=== PATIENT | male | born 1945 | race Caucasian/White ===

== ENCOUNTER → 2020-02-29 17:00 | Outpatient (BNVA) | payer OTHER, MEDICAID, SELFPAY | PROVIDERS: Family Provider Family Medicine; Visit Provider Nurse Practitioner Family | DX: M17.11 Unilateral primary osteoarthritis, right knee (principal); M25.561 Pain in right knee | CPT/HCPCS: 73562 ==

== ENCOUNTER → 2022-03-29 14:35 | Outpatient (BNVA) | payer OTHER, MEDICAID, SELFPAY | PROVIDERS: Family Provider Family Medicine; Visit Provider Family Medicine | DX: E03.9 Hypothyroidism, unspecified (principal); E53.8 Deficiency of other specified B group vitamins | CPT/HCPCS: 82607; 84443 ==

== ENCOUNTER 2023-05-16 10:45 | Oncology outpatient (recurring) (ONCR) | payer MEDICARE, MEDICAID, SELFPAY ==
[2023-04-26 10:27] LABS: Hematocrit 26.9 % (37-53); Mean Corpuscular HGB Conc 31.2 g/dL (30-55); Mean Corpuscular Hemoglobin 30.2 pg (27-33); Mean Corpuscular Volume 96.8 fl (82-101); Mean Platelet Volume 9.5 fL (7.4-10.4); Platelet Count 323 10^3/cmm (157-399); Red Blood Count 2.78 10^6/uL (3.85-5.65); Red Cell Distribution Width 17.2 % (12.1-15.1); White Blood Count 9.55 10^3/uL (3.29-11.43)
[2023-04-26 11:12] LABS: Alanine Aminotransferase 6 U/L (0-41); Albumin Level 3.9 g/dL (3.5-5.2); Alkaline Phosphatase 197 U/L (40-130); Anion Gap 17.5 (5-19); Aspartate Amino Transferase 19 U/L (0-40); Blood Urea Nitrogen 17 mg/dL (8-23); Calcium 9.3 mg/dL (8.5-10.5); Carbon Dioxide 24 mmol/L (22-29); Chloride 103 mmol/L (98-107); Creatinine Clr Calc Pharmacy 60.6343; Globulin 3.1 g/dL (1.3-4.6); Glucose 91 mg/dL (65-115); Osmolality Calculated 289 mOsm/kg (285-295); Potassium 5.5 mmol/L (3.5-5.1); Sodium 139 mmol/L (136-145); Total Bilirubin 0.4 mg/dL (0.15-1.2)
[2023-04-26 11:22] LABS: Slide Review Slide Review Perform
[2023-04-26 11:23] LABS: Absolute Eosinophils 0.1 10^3/cmm (0.0-0.7); Absolute Neutrophil 4.8 10^3/cmm (1.4-6.5); Absolute Segmented Neutrophil 4.3 10/cmm (1.6-7.1); Anisocytosis Trace; Band Neutrophils Absolute 0.5 10^3/cmm (0.0-1.2); Basophils Absolute 0.1 10^3/cmm (0.0-0.2); Eosinophils 1 %; Lymphocytes 37 %; Lymphocytes Absolute 3.9 10^3/cmm (1.2-3.4); Macrocytosis Trace; Monocytes Absolute 0.3 10^3/cmm (0.1-0.6); Platelet Estimate Normal (Normal); Polychromasia Trace; Segmented Neutrophils 45 %; Total Cells Counted 100 (0-100)
[2023-04-26 11:35] LABS: Prostate Specific Antigen > 5000.000 ng/mL (0-4)
[2023-05-09 09:18] LABS: Hematocrit 25.7 % (37-53); Mean Corpuscular HGB Conc 30.7 g/dL (30-55); Mean Corpuscular Hemoglobin 30.2 pg (27-33); Mean Corpuscular Volume 98.1 fl (82-101); Mean Platelet Volume 9.3 fL (7.4-10.4); Platelet Count 393 10^3/cmm (157-399); Red Blood Count 2.62 10^6/uL (3.85-5.65); Red Cell Distribution Width 16.9 % (12.1-15.1); White Blood Count 8.04 10^3/uL (3.29-11.43)
[2023-05-09 10:04] LABS: Slide Review Slide Review Perform
[2023-05-09 10:09] LABS: Absolute Eosinophils 0.2 10^3/cmm (0.0-0.7); Absolute Segmented Neutrophil 3.9 10/cmm (1.6-7.1); Band Neutrophils Absolute 0.2 10^3/cmm (0.0-1.2); Eosinophils 3 %; Lymphocytes 33 %; Lymphocytes Absolute 2.7 10^3/cmm (1.2-3.4); Monocytes Absolute 0.4 10^3/cmm (0.1-0.6); Segmented Neutrophils 48 %; Total Cells Counted 100 (0-100)
[2023-05-09 10:11] LABS: Absolute Neutrophil 4.1 10^3/cmm (1.4-6.5); Anisocytosis 1+; Giant Platelets 1+; Platelet Estimate Normal (Normal)
[2023-05-09] MEDS: zoledronic acid (Zometa) 4 MG/100 ML PIGGYBACK 400 MG IV (11:53)
[2023-05-09] MEDS: leuprolide 22.5 mg Kit IM (11:53)
[2023-05-09 12:16] VITALS: BP 122/53; PULSE 84; O2SAT 93
[2023-05-10] VITALS (10 sets, daily range): BP systolic 108–133; BP diastolic 54–64; PULSE 66–85; RESP 16; TEMP 36.4–36.9; O2SAT 95–97
[2023-05-10] MEDS: acetaminophen 325 mg Tablet 650 MG PO (09:45)
[2023-05-10] MEDS: diphenhydrAMINE 25 mg Capsule PO (09:45)
[2023-05-10] MEDS: sodium chloride 0.9% 250 mL Bag IV (09:45)
[2023-05-10] MEDS: FUROsemide 10 mg/mL SDV 2mL 20 MG IVP (12:01)
[2023-05-16 10:52] LABS: Hematocrit 33.5 % (37-53); Mean Corpuscular HGB Conc 30.4 g/dL (30-55); Mean Corpuscular Hemoglobin 30.2 pg (27-33); Mean Corpuscular Volume 99.1 fl (82-101); Mean Platelet Volume 9.5 fL (7.4-10.4); Platelet Count 353 10^3/cmm (157-399); Red Blood Count 3.38 10^6/uL (3.85-5.65); Red Cell Distribution Width 17.4 % (12.1-15.1); White Blood Count 8.52 10^3/uL (3.29-11.43)
[2023-05-16 11:30] LABS: Slide Review Slide Review Perform; Total Cells Counted 100 (0-100)
[2023-05-16 11:31] LABS: Absolute Eosinophils 0.1 10^3/cmm (0.0-0.7); Anisocytosis Trace; Band Neutrophils Absolute 0.2 10^3/cmm (0.0-1.2); Eosinophils 1 %; Lymphocytes 41 %; Monocytes Absolute 0.5 10^3/cmm (0.1-0.6); Platelet Estimate Normal (Normal)
[2023-05-16 11:34] LABS: Absolute Neutrophil 4.1 10^3/cmm (1.4-6.5); Absolute Segmented Neutrophil 3.9 10/cmm (1.6-7.1); Segmented Neutrophils 46 %
== END 2023-05-22 23:59 | disposition home or self-care (01) ==
PROVIDERS: Internal Medicine Medical Oncology; Nurse Practitioner Family; PCP Family Medicine; Visit Provider Family Medicine
DX: D64.9 Anemia, unspecified (principal)
CPT/HCPCS: 36415; 36430; 80053; 84153; 85007; 85025; 86850; 86900; 86920; 96365; 96375; 96402; 99205; 99215; J1940; J3489; J7050; J9217; P9016

== ENCOUNTER 2023-06-20 10:30 | Oncology outpatient (recurring) (ONCR) | payer MEDICARE, MEDICAID, SELFPAY ==
[2023-05-23 10:58] LABS: Basophils % 0.5 %; Eosinophils # 0.2 10^3/uL (0.0-0.8); Eosinophils % 2.6 %; Hematocrit 31.4 % (37-53); Lymphocytes # 3.2 10^3/uL (0.8-4.8); Lymphocytes % 41.1 %; Mean Corpuscular HGB Conc 31.2 g/dL (30-55); Mean Corpuscular Hemoglobin 30.6 pg (27-33); Mean Corpuscular Volume 98.1 fl (82-101); Mean Platelet Volume 10.1 fL (7.4-10.4); Monocytes # 0.5 10^3/uL (0.2-0.9); Monocytes % 6.1 %; Neutrophils # 3.54 10^3/uL (1.8-7.7); Neutrophils % 46.2 %; Nucleated Red Blood Cells % 0.3 %; Platelet Count 178 10^3/cmm (157-399); Red Cell Distribution Width 17.4 % (12.1-15.1); White Blood Count 7.67 10^3/uL (3.29-11.43)
[2023-05-30 11:01] LABS: Basophils % 0.4 %; Eosinophils # 0.2 10^3/uL (0.0-0.8); Eosinophils % 3.4 %; Hematocrit 31.7 % (37-53); Lymphocytes # 2.8 10^3/uL (0.8-4.8); Lymphocytes % 42.3 %; Mean Corpuscular HGB Conc 30.9 g/dL (30-55); Mean Corpuscular Hemoglobin 30.4 pg (27-33); Mean Corpuscular Volume 98.4 fl (82-101); Mean Platelet Volume 10.3 fL (7.4-10.4); Monocytes # 0.3 10^3/uL (0.2-0.9); Monocytes % 4.9 %; Neutrophils % 46.5 %; Nucleated Red Blood Cells % 0.3 %; Platelet Count 173 10^3/cmm (157-399); Red Blood Count 3.22 10^6/uL (3.85-5.65); Red Cell Distribution Width 17.2 % (12.1-15.1); White Blood Count 6.69 10^3/uL (3.29-11.43)
[2023-06-06 10:35] VITALS: BP 116/74; PULSE 75; RESP 16; TEMP 36.4; O2SAT 99
[2023-06-06 12:37] LABS: Basophils % 0.6 %; Eosinophils # 0.2 10^3/uL (0.0-0.8); Eosinophils % 2.7 %; Hematocrit 29.9 % (37-53); Lymphocytes # 3.2 10^3/uL (0.8-4.8); Lymphocytes % 48.6 %; Mean Corpuscular HGB Conc 31.8 g/dL (30-55); Mean Corpuscular Hemoglobin 30.9 pg (27-33); Mean Corpuscular Volume 97.4 fl (82-101); Mean Platelet Volume 10.3 fL (7.4-10.4); Monocytes # 0.4 10^3/uL (0.2-0.9); Monocytes % 5.8 %; Neutrophils # 2.63 10^3/uL (1.8-7.7); Nucleated Red Blood Cells % 0.3 %; Platelet Count 223 10^3/cmm (157-399); Red Blood Count 3.07 10^6/uL (3.85-5.65); Red Cell Distribution Width 17.2 % (12.1-15.1); White Blood Count 6.57 10^3/uL (3.29-11.43)
[2023-06-06 13:05] LABS: Alanine Aminotransferase 7 U/L (0-41); Albumin Level 4.1 g/dL (3.5-5.2); Alkaline Phosphatase 176 U/L (40-130); Anion Gap 17.3 (5-19); Aspartate Amino Transferase 16 U/L (0-40); Blood Urea Nitrogen 18 mg/dL (8-23); Calcium 8.9 mg/dL (8.5-10.5); Carbon Dioxide 21 mmol/L (22-29); Chloride 106 mmol/L (98-107); Globulin 2.8 g/dL (1.3-4.6); Glucose 104 mg/dL (65-115); Osmolality Calculated 290 mOsm/kg (285-295); Potassium 5.3 mmol/L (3.5-5.1); Sodium 139 mmol/L (136-145); Total Bilirubin 0.5 mg/dL (0.15-1.2); Total Protein 6.9 g/dL (6.6-8.7)
[2023-06-06] MEDS: zoledronic acid (Zometa) 4 MG/100 ML PIGGYBACK 400 MG IV (14:24)
[2023-06-06 14:43] VITALS: BP 123/64; PULSE 84; RESP 16; TEMP 36.7; O2SAT 97
[2023-06-13 12:24] LABS: Basophils % 0.5 %; Eosinophils # 0.2 10^3/uL (0.0-0.8); Eosinophils % 3.1 %; Hematocrit 31.8 % (37-53); Lymphocytes # 2.7 10^3/uL (0.8-4.8); Lymphocytes % 44.5 %; Mean Corpuscular HGB Conc 30.8 g/dL (30-55); Mean Corpuscular Hemoglobin 30.6 pg (27-33); Mean Corpuscular Volume 99.4 fl (82-101); Mean Platelet Volume 9.4 fL (7.4-10.4); Monocytes # 0.4 10^3/uL (0.2-0.9); Monocytes % 6.5 %; Neutrophils # 2.64 10^3/uL (1.8-7.7); Neutrophils % 43.3 %; Nucleated Red Blood Cells % 0 %; Platelet Count 204 10^3/cmm (157-399); Red Cell Distribution Width 17.4 % (12.1-15.1); White Blood Count 6.11 10^3/uL (3.29-11.43)
[2023-06-13 12:50] LABS: Alanine Aminotransferase 6 U/L (0-41); Albumin Level 4.1 g/dL (3.5-5.2); Alkaline Phosphatase 167 U/L (40-130); Anion Gap 14.4 (5-19); Aspartate Amino Transferase 19 U/L (0-40); Blood Urea Nitrogen 17 mg/dL (8-23); Calcium 8.4 mg/dL (8.5-10.5); Carbon Dioxide 24 mmol/L (22-29); Chloride 108 mmol/L (98-107); Creatinine Clr Calc Pharmacy 68.3536; Globulin 2.5 g/dL (1.3-4.6); Glucose 93 mg/dL (65-115); Osmolality Calculated 293 mOsm/kg (285-295); Potassium 5.4 mmol/L (3.5-5.1); Sodium 141 mmol/L (136-145); Total Bilirubin 0.4 mg/dL (0.15-1.2); Total Protein 6.6 g/dL (6.6-8.7)
[2023-06-20 10:44] LABS: Basophils % 0.7 %; Eosinophils # 0.2 10^3/uL (0.0-0.8); Eosinophils % 3.2 %; Hematocrit 31.9 % (37-53); Lymphocytes # 2.6 10^3/uL (0.8-4.8); Lymphocytes % 46.4 %; Mean Corpuscular HGB Conc 31.7 g/dL (30-55); Mean Corpuscular Hemoglobin 31.4 pg (27-33); Mean Corpuscular Volume 99.1 fl (82-101); Mean Platelet Volume 10.1 fL (7.4-10.4); Monocytes # 0.4 10^3/uL (0.2-0.9); Monocytes % 6.9 %; Neutrophils # 2.28 10^3/uL (1.8-7.7); Neutrophils % 41.2 %; Nucleated Red Blood Cells % 0 %; Platelet Count 182 10^3/cmm (157-399); Red Blood Count 3.22 10^6/uL (3.85-5.65); Red Cell Distribution Width 17.5 % (12.1-15.1); White Blood Count 5.54 10^3/uL (3.29-11.43)
[2023-06-20 11:17] LABS: Alanine Aminotransferase 6 U/L (0-41); Albumin Level 4.3 g/dL (3.5-5.2); Alkaline Phosphatase 149 U/L (40-130); Anion Gap 16.1 (5-19); Aspartate Amino Transferase 26 U/L (0-40); Blood Urea Nitrogen 27 mg/dL (8-23); Calcium 8.4 mg/dL (8.5-10.5); Carbon Dioxide 23 mmol/L (22-29); Chloride 107 mmol/L (98-107); Creatinine Clr Calc Pharmacy 51.2652; Globulin 2.6 g/dL (1.3-4.6); Glucose 120 mg/dL (65-115); Osmolality Calculated 296 mOsm/kg (285-295); Potassium 6.1 mmol/L (3.5-5.1); Sodium 140 mmol/L (136-145); Total Bilirubin 0.4 mg/dL (0.15-1.2); Total Protein 6.9 g/dL (6.6-8.7)
== END 2023-06-21 23:59 | disposition home or self-care (01) ==
PROVIDERS: Nurse Practitioner Family; PCP Family Medicine; Visit Provider Family Medicine
DX: C61 Malignant neoplasm of prostate (principal); Z53.9 Procedure and treatment not carried out, unspecified reason
CPT/HCPCS: 36415; 80053; 84153; 85025; 96365; 99214; J3489

== ENCOUNTER 2023-07-04 09:40 | Oncology outpatient (recurring) (ONCR) | payer MEDICARE, MEDICAID, SELFPAY ==
[2023-07-04 10:24] LABS: Basophils % 0.5 %; Eosinophils # 0.1 10^3/uL (0.0-0.8); Eosinophils % 2.5 %; Lymphocytes # 2.8 10^3/uL (0.8-4.8); Lymphocytes % 48.9 %; Mean Corpuscular HGB Conc 31.3 g/dL (30-55); Mean Corpuscular Hemoglobin 31.2 pg (27-33); Mean Corpuscular Volume 99.7 fl (82-101); Monocytes # 0.4 10^3/uL (0.2-0.9); Monocytes % 6.9 %; Neutrophils # 2.27 10^3/uL (1.8-7.7); Neutrophils % 40.5 %; Nucleated Red Blood Cells % 0 %; Platelet Count 215 10^3/cmm (157-399); Red Blood Count 3.11 10^6/uL (3.85-5.65); Red Cell Distribution Width 17.8 % (12.1-15.1); White Blood Count 5.62 10^3/uL (3.29-11.43)
[2023-07-04 10:53] LABS: Alanine Aminotransferase 6 U/L (0-41); Alkaline Phosphatase 136 U/L (40-130); Anion Gap 15.1 (5-19); Aspartate Amino Transferase 15 U/L (0-40); Blood Urea Nitrogen 18 mg/dL (8-23); Calcium 9.2 mg/dL (8.5-10.5); Carbon Dioxide 22 mmol/L (22-29); Chloride 107 mmol/L (98-107); Globulin 2.7 g/dL (1.3-4.6); Glucose 91 mg/dL (65-115); Osmolality Calculated 289 mOsm/kg (285-295); Potassium 5.1 mmol/L (3.5-5.1); Sodium 139 mmol/L (136-145); Total Bilirubin 0.4 mg/dL (0.15-1.2); Total Protein 6.7 g/dL (6.6-8.7)
[2023-07-04] MEDS: zoledronic acid (Zometa) 4 MG/100 ML PIGGYBACK 400 MG IV (13:07)
[2023-07-04 13:29] VITALS: BP 128/66; PULSE 84; TEMP 36.6; O2SAT 98
== END 2023-07-22 23:59 | disposition home or self-care (01) ==
PROVIDERS: Nurse Practitioner Family; PCP Family Medicine; Visit Provider Family Medicine
DX: C61 Malignant neoplasm of prostate (principal); D64.9 Anemia, unspecified; C79.51 Secondary malignant neoplasm of bone; Z79.899 Other long term (current) drug therapy
CPT/HCPCS: 80053; 84153; 85025; 96365; 99213; J3489

== ENCOUNTER 2023-08-01 09:16 | Oncology outpatient (recurring) (ONCR) | payer MEDICARE, MEDICAID, SELFPAY ==
[2023-08-01 10:51] LABS: Basophils % 0.5 %; Eosinophils # 0.2 10^3/uL (0.0-0.8); Hematocrit 30.6 % (37-53); Lymphocytes % 48.5 %; Mean Platelet Volume 9.7 fL (7.4-10.4); Monocytes # 0.4 10^3/uL (0.2-0.9); Monocytes % 6.6 %; Neutrophils # 2.52 10^3/uL (1.8-7.7); Neutrophils % 40.3 %; Nucleated Red Blood Cells % 0 %; Platelet Count 227 10^3/cmm (157-399); Red Blood Count 2.97 10^6/uL (3.85-5.65); White Blood Count 6.25 10^3/uL (3.29-11.43)
[2023-08-01 11:17] LABS: Alanine Aminotransferase 7 U/L (0-41); Albumin Level 3.9 g/dL (3.5-5.2); Alkaline Phosphatase 164 U/L (40-130); Anion Gap 15.8 (5-19); Aspartate Amino Transferase 14 U/L (0-40); Blood Urea Nitrogen 19 mg/dL (8-23); Calcium 8.7 mg/dL (8.5-10.5); Carbon Dioxide 22 mmol/L (22-29); Chloride 110 mmol/L (98-107); Globulin 2.8 g/dL (1.3-4.6); Glucose 88 mg/dL (65-115); Osmolality Calculated 296 mOsm/kg (285-295); Potassium 5.8 mmol/L (3.5-5.1); Sodium 142 mmol/L (136-145); Testosterone Total 2.5 ng/dL (193-740); Total Bilirubin 0.3 mg/dL (0.15-1.2); Total Protein 6.7 g/dL (6.6-8.7)
[2023-08-01] MEDS: zoledronic acid (Zometa) 4 MG/100 ML PIGGYBACK 400 MG IV (12:12)
[2023-08-01] MEDS: leuprolide 22.5 mg Kit IM (12:12)
[2023-08-01 12:38] VITALS: BP 122/63; PULSE 75; RESP 16; TEMP 36.4; O2SAT 99
== END 2023-08-21 23:59 | disposition home or self-care (01) ==
PROVIDERS: Nurse Practitioner Family; PCP Family Medicine; Visit Provider Family Medicine
DX: C61 Malignant neoplasm of prostate (principal); C79.51 Secondary malignant neoplasm of bone; D64.9 Anemia, unspecified; Z79.899 Other long term (current) drug therapy; Z51.12 Encounter for antineoplastic immunotherapy; Z79.818 Long term (current) use of other agents affecting estrogen receptors and estrogen levels
CPT/HCPCS: 80053; 84153; 84403; 85025; 96365; 96402; 99214; J3489; J9217

== ENCOUNTER 2023-08-30 10:52 | Oncology outpatient (recurring) (ONCR) | payer MEDICARE, MEDICAID, SELFPAY ==
--- OUTSIDE RECORDS SUMMARY | 2023-08-30 10:55 | XMS_ITS ---
Author Name Unknown Organization [facility] Address [address] [place], [place] [id number] Care Team Providers Care Pastry Cook Helper Name Role Phone Clint FU, Danielito Primary Care Provider Unavailab jose Herrera MD, Randolph Unavailable [phone] Lizzy Harkins Unavailable [phone] ALLERGIES Allergen (clinical drug ingredient) Drug/Non Drug Allergy documented on EMR Reaction Allergy Type Onset Date Status metaxalone Skelaxin muscle cramps Drug Allergy Ac tive lorazepam Ativan Unknown Drug Allergy Active codeine codeine Unknown Drug Allergy Active REASON FOR VISIT Patient states he is here today for refills {low back pain} MEDICATIONS Medication SIG (Take, Route, Frequency, Duration) Notes Start Date End Date Status levothyroxine 50 mcg (0.05 mg) 1 tab(s) orally once a day for 30 day(s) 06/23/2022 Active ibuprofen 200 mg 3 tabs orally every 6 hours Active losartan 50 mg 1 tab orally once a day 06/23/2021 Active escitalopram 10 mg 1 tab orally twice a day Active Dexilant 60 mg 1 cap orally once a day Active acetaminophen-hydrocodone 325 mg-7.5 mg 1-2 tabs orally Q4-6H prn pain (max 8/day; hold within 4H of planned sleep) for 28 days Do not fill prior to 07/22/23. ICD-10: G89.29 06/21/2023 Active cyclobenzaprine 10 mg 1 tab po orally Q8 H prn pain Active bicalutamide 50 mg 1 tab(s) orally every 24 hours for 30 day(s) 04/27/2023 Active acetaminophen-hydrocodone 325 mg-7.5 mg 1-2 tabs orally Q4-6H prn pain (max 8/day; hold within 4H of planned sleep) for 28 days Do not fill prior to 06/24/23. ICD-10: G89.29 06/21/2023 Active atorvastatin 20 mg 1 tab orally once a day Active SOCIAL HISTORY Tobacco Use: Social History Observation Description Date Details (start date - stop date) Never Smoker NA - NA Sex Assigned At : Social History Observation Description Sex Assigned At Unknown alcohol Question Answer Notes Did you have a drink containing alcohol in the p ast year? No Points 0 Interpretation Negative Tobacco use: Question Answer Notes : nonsmoker VITAL SIGNS Temperature 97.8 degrees Fahrenheit 06/21/19 Height 68 in 06/21/2023 Oximetry 97 % 06/21/2023 Encounters Encounter Location Date Provider [facility] [address] [id number] 06/21/2023 Lizzy Vidal Malignant neoplasm o f overlapping sites of bone and articular cartilage of unspecified limb C40.80 ; Vertebrogenic low back pain M54.51 ; Other chronic pain G89.29 ; Postlaminectomy syndrome, not elsewhere classified M96.1 and Obstructive sleep apnea (adult) (pediatric) G47.33 ASSESSMENTS Encounter Date Diagnosis Assessment Notes Treatment Notes Treatment Clinical Notes 06/21/2023 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 06/21/2023 Vertebrogenic low back pain (ICD-10 - M54.51) Chronic axial lumbar spine pain. 06/21/2023 Other chronic pain (ICD-10 - G89.29) Patient reports that taking his pain medication allows him to traval to his many doctors appointments. Plan to continue oral opioid medication management. 06/21/2023 Postlaminectomy syndrome, not elsewhere classified (ICD-10 - M96.1) Patient reports benefit with use of his SCS system, last reprogrammed ~ 2 years ago. 06/21/2023 Obstructive sleep apnea (adult) (pediatric) (ICD-10 - G47.33) Patient reports nightly use of his CPAP device. 06/21/2023 Other PLAN OF TREATMENT Medication Medication Name Sig Start Date Stop Date Notes acetaminophen-hydrocodon e 325 mg-7.5 mg 1-2 tabs orally Q4-6H prn pain (max 8/day; hold within 4H of planned sleep) for 28 days 06/21/2023 Do not fill prior to 07/22/23. ICD-10: G89.29 acetaminophen-hydrocodon e 325 mg-7.5 mg 1-2 tabs orally Q4-6H prn pain (max 8/day; hold within 4H of planned sleep) for 28 days 06/21/2023 Do not fill prior to 06/24/23. ICD-10: G89.29 Treatment Notes Assessment Notes Malignant neoplasm of overla pping sites of bone and articular cartilage of unspecified limb Patient has reported completion of his current treatment that consisted of oral and intravenous medications. Vertebrogenic low back pain Chronic axia l lumbar spine pain. Other chronic pain Patient reports that taking his pain medication allows him to traval to his many doctors appointments. Plan to continue oral opioid medication management. Postlaminectomy syndrome, no t elsewhere classified Patient reports benefit with use of his SCS system, last reprogrammed ~ 2 years ago. Obstructive sleep apnea (adult) (pediatr ic) Patient reports nightly use of his CPAP device. Next Appt Details Follow Up: 2 month Rx visit. , Reason: Provider Name:Randolph Bridges son, 10/11/2023 02:30:00 PM, [address], [place], [place], [id number], History and Physical Notes * HPI (History of Present Illness) Category Sub-Category Detail Notes Lumbar Spine injury: roller skating i njury in 1997; fall 02/10/18 (multiple falls over time related to the noted left foot drop) tingling/numbness intermittently in th e feet and toes pain in the bilateral low er back. This pain is described as intermittent aching. This pain extends into the left hip and LLE. The back pain is aggravated by arising from a seated position and riding in a car. This pain is somewhat alleviated with use of Blue Ice and by lying down previous surgery: lumbar spine 1997, , 2006; DCS placement 2005 (T8-9 laminotomy with paddle lead placed at top of T7 as per op report) with IPG replacement in 2017 - all surgeries with Dr. Leeroy Gordillo (prior surgery includes left L1-2 and left L3-4 microdiscectomies) weakness in the BLE Medications [place] (hydrocodone / acetaminophen) 325 mg-7.5 mg, 1-2 tabs, orally, Q4-6H prn pain (max 8/day; hold within 4H of planned sleep), 28 days, 224, Refills 0. Notes: Prescriptions given (2) on 04/27/23. Patient reports good benefit, as evidenced by improved ability to attend doctor's appointments and go outside and walk around, with quantity 49 and 0 prescription(s) remaining. Last fill date: 05/27/23 Previous Therapy Previous therapy: topical agent therapy with some benefit; ice therapy with some benefit; home exercises / stretching therapy with history of some benefit; TENS unit therapy with history of some benefit; remote chiropractic therapy with history of benefit (2005); remote physical therapy with history of no benefit (2005); other pain clinic treatment with history of benefit; remote prior injection therapy via other provider(s) - injections in left knee with history of no benefit, injections in low back ([id number]) with history of variable benefit, Medtronic neurostimulator implantation / DCS therapy with history of benefit (IPG exchange in 2017) Medication history: [place] 5/325, 2-3 rakesh ly with benefit; Flexeril 10 mg; gabapentin 100 mg; OTC Blue Ice topical applications Previous Imaging/Studies CT of the L-spine on 01/16/19 X-rays of the L-spine on Non Compliance/Failure to Fo llow Treatment Agreement Failure to bring prescribed medications to appointments: 03/06/18 No-Show to Appointments: 12/18/19 (salomon singh moved to [place] and had since moved back) Abnormal chromatography / ma ss spectrometry results: (counseled on 12/29/21) - 09/17/21 (nega tive [place]), 06/23/21 (negative [place]) and 04/01/19 Failure to keep appointments to facilitate pill count: 03/28/19 ( sick on original appointm ent date) Physical Examination Category Sub-Category Detail Notes ENT Hearing: grossly intact Chest Shape and expansion: normal expa nsion, equal bilaterally, respirations even and unlabored Neurological Psychiatric: alert and conver thad Musculoskeletal Gait: presents in priv ate vehicle Outcome Assessment: Findings:: Negative, care pl an not required Dermatology Skin inspection: jaundiced, warm , dry, and intact General General appearence: well groomed , well nourished Build: average Head: normocephalic Eyes Conjunctiva: without injectio n
--- OUTSIDE RECORDS SUMMARY | 2023-08-30 10:55 | XMS_ITS ---
Author Name Unknown Organization [facility] Address [address] [place], [place] [id number] Care Team Providers Care Dope Mixer Name Role Phone Clint FU, Danielito Primary Care Provider Unavailab jose Herrera MD, Randolph Unavailable [phone] Lizzy Harkins Unavailable [phone] ALLERGIES Allergen (clinical drug ingredient) Drug/Non Drug Allergy documented on EMR Reaction Allergy Type Onset Date Status metaxalone Skelaxin muscle cramps Drug Allergy Ac tive lorazepam Ativan Unknown Drug Allergy Active codeine codeine Unknown Drug Allergy Active REASON FOR VISIT Patient states he is here today for general checkup {low back pain} MEDICATIONS Medication SIG (Take, Route, Frequency, Duration) Notes Start Date End Date Status Dexilant 60 mg 1 cap orally once a day Active ibuprofen 200 mg 3 tabs orally every 6 hours Active escitalopram 10 mg 1 tab orally twice a day Active losartan 50 mg 1 tab orally once a day 06/23/2021 Active levothyroxine 50 mcg (0.05 mg) 1 tab(s) orally once a day for 30 day(s) 06/23/2022 Active cyclobenzaprine 10 mg 1 tab po orally Q8 H prn pain Active atorvastatin 20 mg 1 tab orally once a day Active bicalutamide 50 mg 1 tab(s) orally every 24 hours for 30 day(s) 04/27/2023 Active acetaminophen-hydrocodone 325 mg-7.5 mg 1-2 tabs orally Q4-6H prn pain (max 8/day; hold within 4H of planned sleep) for 28 days Do not fill prior to 09/12/23. ICD-10: G89.29 08/16/2023 Active SOCIAL HISTORY Tobacco Use: Social History [...] Answer Notes : nonsmoker VITAL SIGNS Temperature 95.0 degrees Fahrenheit 08/16/19 Blood pressure systolic 136 mm Hg 08/16/19 Blood pressure diastolic 78 mm Hg 024 Height 68 in 08/16/2023 Weight 160.6 lbs 08/16/2023 Oximetry 96 % 08/16/2023 BMI 24.42 kg/m2 08/16/2023 Encounters Encounter Location Date Provider Diagnosis [facility] [address] [place], [place] [phone] 08/16/2023 Lizzy Vidal Malignant neoplasm o f overlapping sites of bone and articular cartilage of unspecified limb C40.80 ; Vertebrogenic low back pain M54.51 ; Other chronic pain G89.29 ; Postlaminectomy syndrome, not elsewhere classified M96.1 and Obstructive sleep apnea (adult) (pediatric) G47.33 ASSESSMENTS Encounter Date Diagnosis Assessment Notes Treatment Notes Treatment Clinical Notes 08/16/2023 Malignant 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 08/16/2023 Vertebrogenic low back pain (ICD-10 - M54.51) Chronic axial lumbar spine pain. 08/16/2023 Other chronic pain (ICD-10 - G89.29) Patient reports that taking his pain medication allows him to travel with greater ease to his many medical appointments. Plan to continue oral opioid medication management. 08/16/2023 Postlaminectomy syndrome, not elsewhere classified (ICD-10 - M96.1) Patient reports benefit with use of his SCS system, last reprogrammed ~ 2020. 08/16/2023 Obstructive sleep apnea (adult) (pediatric) (ICD-10 - G47.33) Patient reports nightly use of his CPAP device. 08/16/2023 Other PLAN OF TREATMENT Medication Medication Name Sig Start Date Stop Date Notes acetaminophen-hydrocodon e 325 mg-7.5 mg 1-2 tabs orally Q4-6H prn pain (max 8/day; hold within 4H of planned sleep) for 28 days 08/16/2023 Do not fill prior to 09/12/23. ICD-10: G89.29 Treatment Notes Assessment Notes Malignant neoplasm of overla pping sites of bone and articular cartilage of unspecified limb Patient has reported completion of his treatment that consisted of oral and intravenous medications. Vertebrogenic low back pain Chronic axia l lumbar spine pain. Other chronic pain Patient reports that taking his pain medication allows him to travel with greater ease to his many medical appointments. Plan to continue oral opioid medication management. Postlaminectomy syndrome, no t elsewhere classified Patient reports benefit with use of his SCS system, last reprogrammed ~ 2020. Obstructive sleep apnea (adult) (pediatr ic) Patient reports nightly use of his CPAP device. Next Appt Details Follow Up: 2 month Rx visit. , Reason: Provider Name:Randolph Bridges son, 10/11/2023 02:30:00 PM, [address] [facility], [place], [place], [id number], History and Physical Notes * HPI (History of Present Illness) Category Sub-Category Detail Notes Lumbar Spine injury: roller skating i njury in 1997; fall 02/10/18 (multiple falls over time related to the noted left foot drop) tingling/numbness intermittently in th e feet and toes pain in the bilateral low er back. This pain is described as intermittent aching. The pain intermittently extends into the hips and BLE. The back pain is aggravated by walking, standing, or sitting at the [facility] in [place] and riding in a car. This pain is somewhat alleviated with use of ice and with frequent position changes previous surgery: lumbar spine 1997, , 2006; SCS placement 2005 (T8-9 laminotomy with paddle lead placed at top of T7 as per op report) with IPG replacement in 2017 - all surgeries with Dr. Leeroy Gordillo (prior surgery includes left L1-2 and left L3-4 microdiscectomies) weakness in the BLE Medications [place] (hydrocodone / acetaminophen) 325 mg-7.5 mg, 1-2 tabs, orally, Q4-6H prn pain (max 8/day; hold within 4H of planned sleep), 28 days, 224, Refills 0. Notes: Prescriptions given (2) on 06/21/23. Patient reports good benefit, as evidenced by improved ability to ride in a vehicle and walk for longer periods of time down hallways at hospital, with quantity 232 and 0 prescription(s) remaining. Last fill date: 08/15/23 Previous Therapy Previous therapy: topical agent therapy with some benefit; ice therapy with some benefit; SCS therapy with some benefit (Medtronic neurostimulator implantation / SCS therapy with IPG exchange in 2016); home exercises / stretching therapy with history [...] of no benefit, injections in low back ([id number]) with history of variable benefit Medication history: [place] 5/325, 2-3 rakesh ly with benefit; Flexeril 10 mg; gabapentin 100 mg; OTC Blue Ice topical applications Previous Imaging/Studies CT of the L-spine on 01/16/19 X-rays of the L-spine on Non Compliance/Failure to Fo llow Treatment Agreement Failure to bring prescribed medications to appointments: 03/06/18 No-Show to Appointments: 12/18/19 (salomon singh moved to [place] and had since moved back) Abnormal chromatography / ma ss spectrometry results: (counseled on 12/29/21) - 09/17/21 (nega tive [place]), 06/23/21 (negative [place]) and 04/01/19 Failure to keep appointments to facilitate pill count: 03/28/19 ( sick on original appointm ent date) Physical Examination Category Sub-Category Detail Notes ENT Hearing: grossly intact Chest Shape and expansion: normal expa nsion, equal bilaterally, respirations even and unlabored Neurological Psychiatric: alert and conver thad Musculoskeletal Gait: broad based Outcome Assessment: Findings:: Negative, care pl an not required Dermatology Skin inspection: jaundiced, warm , dry, and intact General General appearence: well groomed , well nourished Build: average Head: normocephalic Eyes Conjunctiva: without injectio n
--- OUTSIDE RECORDS SUMMARY | 2023-08-30 10:55 | XMS_ITS ---
Author Name Unknown Organization [facility] Address [address] [place], [place] [id number] Care Team Providers Care Map Maker Name Role Phone Clint FU, Danielito Primary Care Provider Unavailab Edwin FU, Randolph Unavailable [phone] ALLERGIES Allergen (clinical drug ingredient) Drug/Non Drug Allergy documented on EMR Reaction Allergy Type Onset Date Status metaxalone Skelaxin muscle cramps Drug Allergy Ac tive lorazepam Ativan Unknown Drug Allergy Active codeine codeine Unknown Drug Allergy Active REASON FOR VISIT Patient's states he is here today to adjust medication because he has bone cancer {low back pain} MEDICATIONS Medication SIG (Take, Route, Frequency, Duration) Notes Start Date End Date Status levothyroxine 50 mcg (0.05 mg) 1 tab(s) orally once a day for 30 day(s) 06/23/2022 Active losartan 50 mg 1 tab orally once a day 06/23/2021 Active ibuprofen 200 mg 3 tabs orally every 6 hours Active atorvastatin 20 mg 1 tab orally once a day Active Dexilant 60 mg 1 cap orally once a day Active acetaminophen-hydrocodo ne 325 mg-7.5 mg 1-2 tabs orally Q4-6H prn pain (max 8/day; hold within 4H of planned sleep) for 28 days ICD-10: C40.80; Newly diagnosed Bone Cancer. 04/27/2023 Active acetaminophen-hydrocodo ne 325 mg-7.5 mg 1-2 tabs orally Q4-6H prn pain (max 8/day; hold within 4H of planned sleep) for 28 days Do not fill prior to 05/25/23. ICD-10: C40.80 04/27/2023 Active cyclobenzaprine 10 mg 1 tab po orally Q8H prn pain Active escitalopram 10 mg 1 tab orally twice a day Active bicalutamide 50 mg 1 tab(s) orally every 24 hours for 30 day(s) 04/27/2023 Active SOCIAL HISTORY Tobacco Use: Social History Observation Description Date Details (start date - stop date) Never Smoker NA - NA Sex Assigned At : Social History Observation Description Sex Assigned At Unknown alcohol Question Answer Notes Did you have a drink containing alcohol in the p ast year? No Points 0 Interpretation Negative Tobacco use: Question Answer Notes : nonsmoker PROBLEMS Problem Type ICD Code Onset Dates Problem Status W/U Status Risk SNOMED Code Notes Problem 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 (C40.80) Active confirmed Overlapping malignant neoplasm of bone and articular cartilage ([id number]) VITAL SIGNS Temperature 97.6 degrees Fahrenheit 04/27/19 Height 68 in 04/27/2023 Weight 159.4 lbs 04/27/2023 Oximetry 97 % 04/27/2023 BMI 24.23 kg/m2 04/27/2023 Encounters Encounter Location Date Provider Diagnosis [facility] [address] [id number] [place], [place] [id number] 04/27/2023 Randolph Camposashley Malignant neoplasm o f overlapping sites of bone and articular cartilage of unspecified limb C40.80 ; Vertebrogenic low back pain M54.51 ; Other chronic pain G89.29 ; Postlaminectomy syndrome, not elsewhere classified M96.1 and Obstructive sleep apnea (adult) (pediatric) G47.33 ASSESSMENTS Encounter Date Diagnosis Assessment Notes Treatment Notes Treatment Clinical Notes 04/27/2023 Malignant neoplasm o f overlapping sites of bone and articular cartilage of unspecified limb (ICD-10 - C40.80) Patient reports completion of a Bone Scan in 03/2023 at [facility] in [place], [place]. He states he had his initial appointment with Dr. Bansal yesterday. 04/27/2023 Vertebrogenic low back pain (ICD-10 - M54.51) Chronic axial lumbar spine pain. 04/27/2023 Other chronic pain (ICD-10 - G89.29) Patient reports an increase in pain related to his newly diagnosed bone cancer. Plan dose adjustment. Plan to continue oral opioid medication management. 04/27/2023 Postlaminectomy syndrome, not elsewhere classified (ICD-10 - M96.1) Patient reports benefit with use of his SCS (DCS) system, last reprogrammed ~ 2 years ago. 04/27/2023 Obstructive sleep apnea (adult) (pediatric) (ICD-10 - G47.33) Patient reports nightly use of his CPAP device. 04/27/2023 Other PLAN OF TREATMENT Medication Medication Name Sig Start Date Stop Date Notes acetaminophen-hydrocodo ne 325 mg-7.5 mg 1-2 tabs orally Q4-6H prn pain (max 8/day; hold within 4H of planned sleep) for 28 days 04/27/2023 ICD-10: C40.80; Newl y diagnosed Bone Cancer. acetaminophen-hydrocodo ne 325 mg-7.5 mg 1-2 tabs orally Q4-6H prn pain (max 8/day; hold within 4H of planned sleep) for 28 days 04/27/2023 Do not fill prior to 05/25/23. ICD-10: C40.80 Treatment Notes Assessment Notes Malignant neoplasm of overla pping sites of bone and articular cartilage of unspecified limb Patient reports completion of a Bone Sca n in 03/2023 at [facility] in [place], [place]. He states he had his initial appointment with Dr. Bansal yesterday. Vertebrogenic low back pain Chronic axia l lumbar spine pain. Other chronic pain Patient reports an increase in pain related to his newly diagnosed bone cancer. Plan dose adjustment. Plan to continue oral opioid medication management. Postlaminectomy syndrome, no t elsewhere classified Patient reports benefit with use of his SCS (DCS) system, last reprogrammed ~ 2 years ago. Obstructive sleep apnea (adult) (pediatr ic) Patient reports nightly use of his CPAP device. Next Appt Details Follow Up: 2 month Rx visit. , Reason: Provider Name:Randolph Bridges son, 10/11/2023 02:30:00 PM, [address] [facility], [place], [place], [id number], History and Physical Notes * HPI (History of Present Illness) Category Sub-Category Detail Notes Lumbar Spine injury: roller skating i njury in 1997; fall 02/10/18 (multiple falls over time related to the noted left foot drop) tingling/numbness pain in the bilateral low er back. This pain is described as constant aching with intermittent throbbing. This pain extends into the hips and BLE. The back pain is aggravated by all walking, all standing, and riding in a car. This pain is somewhat alleviated with rest and by sitting down previous surgery: lumbar spine 1997, 2 , 2006; DCS placement 2005 (T8-9 laminotomy with paddle lead placed at top of T7 as per op report) with IPG replacement in 2017 - all surgeries with Dr. Leeroy Gordillo (prior surgery includes left L1-2 and left L3-4 microdiscectomies) weakness Medications [place] (hydrocodone / acetaminophen) 325 mg-7.5 mg, 1 tab, orally, Q4H prn pain (max 4/day; hold within 4H of planned sleep), 28 days, 112, Refills 0. Notes: Prescriptions given (2) on 03/23/23. Patient reports minimal benefit, with quantity 26 and 1 eRx at the pharmacy (eCancelled). Last fill date: 04/12/23 Previous Therapy Previous therapy: topical agent therapy [...] of no benefit, injections in low back ([id number]) with history of variable benefit, Medtronic neurostimulator implantation / DCS therapy with history of benefit (IPG exchange in 2017) Medication history: [place] 5/325, 2-3 rakesh ly with benefit; Flexeril 10 mg; gabapentin 100 mg Previous Imaging/Studies CT of the L-spine on 01/16/19 X-rays of the L-spine on Non Compliance/Failure to Fo llow Treatment Agreement Failure to bring prescribed medications to appointments: 03/06/18 No-Show to Appointments: 12/18/19 (salomon singh moved to [place] and had since moved back) Abnormal chromatography / ma ss spectrometry results: (counseled on 12/29/21) - 09/17/21 (alka Yanez), 06/23/21 (negative [place]) and 04/01/19 Failure to keep appointments to facilitate pill count: 03/28/19 ( sick on original appointm ent date) Physical Examination Category Sub-Category Detail Notes ENT Hearing: grossly intact Chest Shape and expansion: normal expa nsion, equal bilaterally, respirations even and unlabored Neurological Psychiatric: alert and conver thad Musculoskeletal Gait: unsteady, use of cane for ambulation assistance Outcome Assessment: Findings:: Negative, care pl an not required Dermatology Skin inspection: jaundiced, warm , dry, and intact General General appearence: well groomed , well nourished Build: average Head: normocephalic Eyes Conjunctiva: without injectio n
--- OUTSIDE RECORDS SUMMARY | 2023-08-30 10:55 | XMS_ITS | Patient Health Record ---
Author Name Unknown Organization [facility] [employer] Address [address] [place], [place] [address] Care Team Providers Care Trampoline Team Coach Name Role Phone Clint FU, Danielito Primary Care Provider Unavailab Edwin FU, Randolph Unavailable [phone] Lizzy Harkins Unavailable [phone] ALLERGIES Allergen (clinical drug ingredient) Drug/Non Drug Allergy documented on EMR Reaction Allergy Type Onset Date Status metaxalone Skelaxin muscle cramps Drug Allergy Ac tive lorazepam Ativan Unknown Drug Allergy Active codeine codeine Unknown Drug Allergy Active REASON FOR REFERRAL No Information MEDICATIONS Medication SIG (Take, Route, Frequency, Duration) Notes Start Date End Date Status Dexilant 60 mg 1 cap orally once a day Active cyclobenzaprine 10 mg 1 tab po orally Q8 H prn pain Active ibuprofen 200 mg 3 tabs orally every 6 hours Active escitalopram 10 mg 1 tab orally twice a day Active losartan 50 mg 1 tab orally once a day 06/23/2021 Active levothyroxine 50 mcg (0.05 mg) 1 tab(s) orally once a day for 30 day(s) 06/23/2022 Active atorvastatin 20 mg 1 tab orally [...] W/U Status Risk SNOMED Code Notes Problem Low back pain (M54.5) Active confirmed Low back pain (247296560) Problem USP (current) use of opiate analgesic (Z79.891) Active confirmed High risk drug monitoring status (529598131) Problem 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 (C40.80) Active confirmed Overlapping malignant neoplasm of bone and articular cartilage (238314267) Problem Obstructive sleep apnea (adult) (pediatric) (G47.33) Active confirmed Obstructive sle ep apnea syndrome (46662090) Problem Other chronic pain (G89.29) Active confirmed Chronic pain (64984377) Problem Foot drop, left foot (M21.372) Active confirmed Left foot daria p (946169235241935) Problem Spondylolisthesis, lumbar region (M43.16) Active confirmed Acquired spondylolisthesis (919956588) Problem Postlaminectomy syndrome, not elsewhere classified (M96.1) Active confirmed Post-lami nectomy syndrome (62976331) Problem Wedge compression fracture of first lumbar vertebra, initial encounter for closed fracture (S32.010A) Active confirmed Closed fracture of lumbar vertebra without spinal cord injury (07049278) Problem Wedge compression fracture of first lumbar vertebra, subsequent encounter for fracture with routine healing (S32.010D) Active confirmed Wedge fracture of lumbar vertebra (863494386) Problem Other exterminator termite (current) drug therapy (Z79.899) Active confirmed Long-term current use of drug therapy (318217071) Problem Vertebrogenic low back pain (M54.51) Active confirmed Pain in l umbar spine (689349309) VITAL SIGNS Temperature 95.0 degrees Fahrenheit 08/16/2023 Blood pressure diastolic 78 mm Hg 08/16/2023 Oximetry 96 % 08/16/2023 Height 68 in 08/16/2023 Blood pressure systolic 136 mm Hg 08/16/2023 Weight 160.6 lbs 08/16/2023 BMI 24.42 kg/m2 08/16/2023 Encounters Encounter Location Date Provider Diagnosis [facility] [address] [place], [place] [id number] 10/06/2022 Lizzy Vidal Vertebrogenic low ba ck pain M54.51 ; Other chronic pain G89.29 ; Postlaminectomy syndrome, not elsewhere classified M96.1 and Obstructive sleep apnea (adult) (pediatric) G47.33 [facility] [address] [place], [place] [id number] 01/05/2023 Lizzy Vidal Vertebrogenic low ba ck pain M54.51 ; Other chronic pain G89.29 ; Postlaminectomy syndrome, not elsewhere classified M96.1 ; Obstructive sleep apnea (adult) (pediatric) G47.33 and terminal make up operator (current) use of opiate analgesic Z79.891 [facility] [address] [place], [place] [id number] 02/01/2023 Randolph Herrera [facility] [address] [place], [place] [id number] 03/23/2023 Lizzy Vidal Vertebrogenic low ba ck pain M54.51 ; Other chronic pain G89.29 ; Postlaminectomy syndrome, not elsewhere classified M96.1 and Obstructive sleep apnea (adult) (pediatric) G47.33 [facility] [address] [place], [place] [id number] 03/30/2023 Randolph Herrera [facility] [address] [place], [place] [id number] 04/27/2023 Randolph Herrera Malignant neoplasm o f overlapping sites of bone and articular cartilage of unspecified limb C40.80 ; Vertebrogenic low back pain M54.51 ; Other chronic pain G89.29 ; Postlaminectomy syndrome, not elsewhere classified M96.1 and Obstructive sleep apnea (adult) (pediatric) G47.33 [facility] [address] [place], [place] [id number] 06/21/2023 Lizzy Vidal Malignant neoplasm o f overlapping sites of bone and articular cartilage of unspecified limb C40.80 ; Vertebrogenic low back pain M54.51 ; Other chronic pain G89.29 ; Postlaminectomy syndrome, not elsewhere classified M96.1 and Obstructive sleep apnea (adult) (pediatric) G47.33 [facility] [address] [place], [place] [id number] 08/16/2023 Lizzy Vidal Malignant neoplasm o f overlapping sites of bone and articular cartilage of unspecified limb C40.80 ; Vertebrogenic low back pain M54.51 ; Other chronic pain G89.29 ; Postlaminectomy syndrome, not elsewhere classified M96.1 and Obstructive sleep apnea (adult) (pediatric) G47.33 ASSESSMENTS Encounter Date Diagnosis Assessment Notes Treatment Notes Treatment Clinical Notes 10/06/2022 Other chronic pain (ICD-10 - G89.29) Patient reports that taking his pain medication has allowed him to make multiple trips to be with his daughter (open heart surgery). He would like consideration for an extra dose a day when needed. Plan to continue oral opioid medication management with quantity titration 10/06/2022 Vertebrogenic low back pain (ICD-10 - M54.51) Chronic axial lumbar spine pain 01/05/2023 Vertebrogenic low back pain (ICD-10 - M54.51) Chronic axial lumbar spine pain. 03/23/2023 Vertebrogenic low back pain (ICD-10 - M54.51) Chronic axial lumbar spine pain. 04/27/2023 Malignant neoplasm o f overlapping sites of bone and articular cartilage of unspecified limb (ICD-10 - C40.80) Patient reports completion of a Bone Scan in 03/2023 at [facility] in [place], [place]. He states he had his initial appointment with Dr. Bansal yesterday. 06/21/2023 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 08/16/2023 Malignant 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 04/27/2023 Vertebrogenic low back pain (ICD-10 - M54.51) Chronic axial lumbar spine pain. 06/21/2023 Vertebrogenic low back pain (ICD-10 - M54.51) Chronic axial lumbar spine pain. 08/16/2023 Vertebrogenic low back pain (ICD-10 - M54.51) Chronic axial lumbar spine pain. 04/27/2023 Other chronic pain (ICD-10 - G89.29) Patient reports an increase in pain related to his newly diagnosed bone cancer. Plan dose adjustment. Plan to continue oral opioid medication management. 03/23/2023 Other chronic pain (ICD-10 - G89.29) Patient reports that taking his pain medication has allowed him to be more active. Plan to continue oral opioid medication management. 03/23/2023 Postlaminectomy syndrome, not elsewhere classified (ICD-10 - M96.1) Patient reports benefit with use of his DCS/IPG system, last reprogrammed ~ 2 years ago. 01/05/2023 Other chronic pain (ICD-10 - G89.29) Patient reports that taking his pain medication has allowed him to spend more time outdoors. Plan to continue oral opioid medication management. 01/05/2023 Postlaminectomy syndrome, not elsewhere classified (ICD-10 - M96.1) Patient reports benefit with use of his DCS/IPG system, last reprogrammed ~ 2 years ago. 10/06/2022 Postlaminectomy syndrome, not elsewhere classified (ICD-10 - M96.1) Patient reports benefit with use of his DCS/IPG system, last reprogrammed ~ 2 years ago 10/06/2022 Obstructive sleep apnea (adult) (pediatric) (ICD-10 - G47.33) Patient reports nightly use of his CPAP device 01/05/2023 Obstructive sleep apnea (adult) (pediatric) (ICD-10 - G47.33) Patient reports nightly use of his CPAP device. 03/23/2023 Obstructive sleep apnea (adult) (pediatric) (ICD-10 - G47.33) Patient reports nightly use of his CPAP device. 04/27/2023 Postlaminectomy syndrome, not elsewhere classified (ICD-10 - M96.1) Patient reports benefit with use of his SCS (DCS) system, last reprogrammed ~ 2 years ago. 06/21/2023 Other chronic pain (ICD-10 - G89.29) Patient reports that taking his pain medication allows him to traval to his many doctors appointments. Plan to continue oral opioid medication management. 06/21/2023 Postlaminectomy syndrome, not elsewhere classified (ICD-10 - M96.1) Patient reports benefit with use of his SCS system, last reprogrammed ~ 2 years ago. 08/16/2023 Other chronic pain (ICD-10 - G89.29) [...] nightly use of his CPAP device. 06/21/2023 Obstructive sleep apnea (adult) (pediatric) (ICD-10 - G47.33) Patient reports nightly use of his CPAP device. 04/27/2023 Obstructive sleep apnea (adult) (pediatric) (ICD-10 - G47.33) Patient reports nightly use of his CPAP device. 01/05/2023 terminal make up operator (current) use of opiate analgesic (ICD-10 - Z79.891) 2022 opioid (OUD) risk tool score = 0. This places the patient in the low risk category. 10/06/2022 Other 01/05/2023 Other 03/23/2023 Other 04/27/2023 Other 06/21/2023 Other 08/16/2023 Other PLAN OF TREATMENT Next Appt Details Provider Name:Randolph Bridges son, 10/11/2023 02:30:00 PM, [address] [place], [place], [id number], Insurance Providers Payer Name Payer Address Payer Phone Subscriber Number Group Number Insured Name Patient Relationship to Insured Coverage Start Date Coverage End Date [facility] [address] [address] [place] [id number] [employer] BaragaLuis Self - patient is the insured [place] [employer] [address] [place] [id number] ChantellLuis Self - patient is the insured MEDICAL (GENERAL) HISTORY Medical History History ICD Code Chronic pain Low back pain Lumbar spondylosis, disc dis ease, spinal stenosis, post-laminectomy syndrome and spondylolisthesis L1 fracture s/p 02/10/18 fall Shoulder pain, right Peripheral neuropathy Diabetes mellitus type II Heartburn Salcedo's esophagus Prostate cancer (in remission since 2010 ) Mild depression Statin medication use Antihypertensive medication use Bone cancer (diagnosed 03/2023) Sleep apnea Obesity, mild Surgical History Surgery Date(Month/Year) Renal stent, performed in [place], [place] by Dr. Segundo, 2003 (vs. 2004) Hernia surgery, 2006 Back surgery (left L1-2 and left L3-4 microdiscectomies), performed in [place], [place] by Dr. Leeroy Gordillo, 1997, 1999, 2006 Placement of Medtronic stimu lator (SCS system, with IPG, placement) in back (T8-9 laminotomy for paddle lead), 2005 Repair of torn cartilage, 04/2010 Cystoscopy with laser incisi on of bladder neck contracture, performed by Dr. Schwartz, 2011 Circumcision, performed by Dr. Schwartz, 01/10/12 IPG exchange (Medtronic SCS system), performed in [place], [place], performed by Dr. Leeroy Gordillo, 05/03/16 EGD, 05/26/16 Hospitalization History Reason Date(Month/Year) Complication from prostate cancer Dilation of urethra
--- OUTSIDE RECORDS SUMMARY | 2023-08-30 10:55 | XMS_ITS ---
Author Name Unknown Address [address] [place], [place] [id number] Phone Organization Unknown Address [address] [place], [place] [id number] Phone Care Team Providers Care Cruller Maker Name Role Phone SHILOH Leung Attending Unavailable Immunization Immunization Date Status Additional Notes Code Code System Influenza, high dose seasonal 12/29/2012 Completed 135 CVX Results CBC w/AUTOMATED DIFF - Colle ct Date/Time: 10/31/2020 10:32 [facility] ID: [id number] [address] [place], [place], [id number] LOINC: 82452-3 Test Value Unit Reference Range Code Code System Flag WBC 7.7 th/ul L=4.0 H=10.5 6690-2 LOINC RBC 4.93 mil/ul L=4.50 H=6.00 789-8 LOINC HGB 15.7 g/dl L=13.5 H=18.0 718-7 LOINC HCT 47.4 % L=41.0 H=52.0 4544-3 LOINC MCV 96 fL L=78 H=100 787-2 LOINC MCH 31.8 pg L=27.0 H=32.0 785-6 LOINC MCHC 33.1 g/dl L=32.0 H=36.0 786-4 LOINC RDW 13.7 % L=11.0 H=14.0 788-0 LOINC PLATELET 235 th/ul L=150 H=450 777-3 LOINC %NEUT 42.1 % L=50.0 H=70.0 770-8 LOINC L %LYMPH 48.8 % L=20.0 H=40.0 736-9 LOINC H %MONO 5.3 % L=0.0 H=10.0 5905-5 LOINC %EOS 3.1 % L=0.0 H=3.0 713-8 LOINC H %BASO 0.4 % L=0.0 H=2.0 706-2 LOINC %IG 0.3 % L=0.0 H=2.0 #NEUT 3.2 th/ul 751-8 LOINC #LYMPHS 3.8 th/ul 731-0 LOINC #MONOS 0.4 th/ul 742-7 LOINC #EOS 0.2 th/ul 711-2 LOINC #BASO 0.0 th/ul 704-7 LOINC #IG 0.0 th/uL 21840-1 LOINC NRBC 0 /100 WBC L=0 H=0 MANUAL DIFF NOT INDICATED 06083-1 LOINC 12 (COMP METAB PROFILE) - Collect Date/Time: 10/31/2020 10:32 [facility] ID: [id number] [address] [place] [address], [id number] LOINC: 77666-4 Test Value Unit Reference Range Code Code System Flag SODIUM 138 mmol/L L=136 H=145 2951-2 LOINC POTASSIUM 5.0 mmol/L L=3.5 H=5.0 2823-3 LOINC CHLORIDE 104 mmol/L L=98 H=107 2075-0 LOINC CO2 23.8 mmol/L L=22.0 H=29.0 1962-0 LOINC BUN 23 mg/dl L=6 H=21 3094-0 LOINC H CREATININE 1.1 mg/dl L=0.7 H=1.2 2160-0 LOINC GLUCOSE 109 mg/dl L=74 H=109 2345-7 LOINC CALCIUM 9.3 mg/dl L=8.6 H=10.5 65269-9 LOINC SGOT(AST) 50 U/L L=5 H=40 1920-8 LOINC H SGPT(ALT) 49 U/L L=5 H=41 1744-2 LOINC H ALKALINE PHOS 87 U/L L=40 H=129 6768-6 LOINC BILIRUBIN T 0.97 mg/dl L=0.00 H=1.20 1975-2 LOINC TOTAL PROTEIN 7.0 g/dL L=6.1 H=8.1 2885-2 LOINC ALBUMIN 4.3 g/dl L=3.5 H=5.2 1751-7 LOINC GLOBULIN 2.7 g/dl L=2.3 H=3.5 12315-0 LOINC A/G RATIO 1.6 % L=1.0 H=1.8 1759-0 LOINC AGE 75 yrs [address]-3 LOINC GFR-AA 84 L=60 H=999 69297-1 LOINC GFR-NON AA 70 L=60 H=999 31738-3 LOINC HGBA1C (GLYCOHEMOGLOBIN) - C ollect Date/Time: 10/31/2020 10:32 [facility] ID: [id number] [address] [place] [address], [id number] LOINC: 4548-4 Test Value Unit Reference Range Code Code System Flag HGBA1c(GLYCO) 7.0 % L=4.6 H=6.0 4548-4 LOINC H MEAN BLD GLUC 154 mg/dl LIPID PANEL - Collect Date/T zacarias: 10/31/2020 10:32 [facility] ID: [id number] [address] [place] [address], [id number] LOINC: 66309-3 Test Value Unit Reference Range Code Code System Flag TRIGLYCERIDE 201 mg/dl L=0 H=150 2571-8 LOINC H CHOLESTEROL 188 mg/dl L=0 H=199 2093-3 LOINC HDL CHOLESTEROL 34.6 mg/dl L=40.0 Z=94379 2085-9 LOINC L LDL CHOLESTEROL 113 mg/dl L=66 H=160 46754-3 LOINC VLDL 40 L=6 H=40 10880-2 LOINC CHOL/HDL RATIO 5.4 mg/dl L=0.0 H=5.0 9830-1 LOINC H Social History Type Status Start Date End Date Code Code Syst em Sex Male Hospital Discharge Instructions Should you have any questions prior to discharge, please contact a member of your healthcare team. If you have left the hospital and have any questions, please contact your primary care physician. Reason For Referral No Data Found Plan of Treatment No Data Found Encounters Encounter Diagnosis Start Date Code Code Sys tem Mixed hyperlipidemia 10/31/2020 [id number] SNOMED- CT Personal Care Team Section Performer Name Performer Role Active Date Inactive Da te
--- OUTSIDE RECORDS SUMMARY | 2023-08-30 10:56 | XMS_ITS ---
Author Name Unknown Address [address] [place], [place] [id number] Phone Organization Unknown Address [address] [place], [place] [phone] Phone Care Team Providers Care Third Cook Name Role Phone SHILOH Leung Attending Unavailable Immunization Immunization Date Status Additional Notes Code Code System Influenza, high dose seasonal 12/29/2012 Completed 135 CVX Results LIPID PANEL - Collect Date/T zacarias: 02/24/2022 07:30 [facility] ID: [id number] [address] [place] [address], [id number] LOINC: 98317-3 Test Value Unit Reference Range Code Code System Flag TRIGLYCERIDE 192 mg/dl L=0 H=150 2571-8 LOINC H CHOLESTEROL 154 mg/dl L=0 H=199 2093-3 LOINC HDL CHOLESTEROL 35.0 mg/dl L=40.0 L=61433 2085-9 LOINC L LDL CHOLESTEROL 81 mg/dl L=66 H=160 64190-4 LOINC VLDL 38 L=6 H=40 02371-4 LOINC CHOL/HDL RATIO 4.4 mg/dl L=0.0 H=5.0 9830-1 LOINC HGBA1C (GLYCOHEMOGLOBIN) - C ollect Date/Time: 02/24/2022 07:30 [facility]: [id number] [address] [place] [address], [id number] LOINC: 4548-4 Test Value Unit Reference Range Code Code System Flag HGBA1c(GLYCO) 6.1 % L=4.6 H=6.0 4548-4 LOINC H MEAN BLD GLUC 128 mg/dl COMPREHENSIVE METABOLIC PROF ILE - Collect Date/Time: 02/24/2022 07:30 [facility] ID: [id number] [address] [place] [address], [id number] LOINC: 78870-6 Test Value Unit Reference Range Code Code System Flag SODIUM 141 mmol/L L=136 H=145 2951-2 LOINC POTASSIUM 4.9 mmol/L L=3.5 H=5.0 2823-3 LOINC CHLORIDE 105 mmol/L L=98 H=107 2075-0 LOINC CO2 23.8 mmol/L L=22.0 H=29.0 1962-0 LOINC BUN 16 mg/dl L=6 H=21 3094-0 LOINC CREATININE 1.2 mg/dl L=0.7 H=1.2 2160-0 LOINC GLUCOSE 79 mg/dl L=74 H=109 2345-7 LOINC CALCIUM 9.6 mg/dl L=8.6 H=10.5 55332-4 LOINC SGOT(AST) 32 U/L L=5 H=40 1920-8 LOINC SGPT(ALT) 20 U/L L=5 H=41 1744-2 LOINC ALKALINE PHOS 82 U/L L=40 H=129 6768-6 LOINC BILIRUBIN T 0.94 mg/dl L=0.00 H=1.20 1975-2 LOINC TOTAL PROTEIN 6.9 g/dL L=6.1 H=8.1 2885-2 LOINC ALBUMIN 4.3 g/dl L=3.5 H=5.2 1751-7 LOINC GLOBULIN 2.6 g/dl L=2.3 H=3.5 44539-5 LOINC A/G RATIO 1.7 % L=1.0 H=1.8 1759-0 LOINC AGE 76 yrs [address]-9 LOINC GFR-AA 76 L=60 H=999 02831-2 LOINC GFR-NON AA 63 L=60 H=999 76361-0 LOINC Social History Type Status Start Date End [...] Date Code Code Sys tem Mixed hyperlipidemia 02/24/2022 [id number] SNOMED- CT Personal Care Team Section Performer Name Performer Role Active Date Inactive Da te
--- OUTSIDE RECORDS SUMMARY | 2023-08-30 10:56 | XMS_ITS ---
Author Name Unknown Address [address] [place], [place] [id number] Phone Organization Unknown Address [address] [place], [place] [phone] Phone Care Team Providers Care Registry Rn Name Role Phone SHILOH Leung Attending Unavailable Immunization Immunization Date Status Additional Notes Code Code System Influenza, high dose seasonal 12/29/2012 Completed 135 CVX Results CBC w/AUTOMATED DIFF - Colle ct Date/Time: 04/24/2021 10:[address] [facility] ID: [id number] [address] [place], [place], [phone] LOINC: 09029-9 Test Value Unit Reference Range Code Code System Flag WBC 7.3 th/ul L=4.0 H=10.5 6690-2 LOINC RBC 4.99 mil/ul L=4.50 H=6.00 789-8 LOINC HGB 15.6 g/dl L=13.5 H=18.0 718-7 LOINC HCT 47.7 % L=41.0 H=52.0 4544-3 LOINC MCV 96 fL L=78 H=100 787-2 LOINC MCH 31.3 pg L=27.0 H=32.0 785-6 LOINC MCHC 32.7 g/dl L=32.0 H=36.0 786-4 LOINC RDW 14.0 % L=11.0 H=14.0 788-0 LOINC PLATELET 211 th/ul L=150 H=450 777-3 LOINC %NEUT 41.9 % L=50.0 H=70.0 770-8 LOINC L %LYMPH 48.7 % L=20.0 H=40.0 736-9 LOINC H %MONO 5.9 % L=0.0 H=10.0 5905-5 LOINC %EOS 3.0 % L=0.0 H=3.0 713-8 LOINC %BASO 0.4 % L=0.0 H=2.0 706-2 LOINC %IG 0.1 % L=0.0 H=2.0 #NEUT 3.1 th/ul 751-8 LOINC #LYMPHS 3.6 th/ul 731-0 LOINC #MONOS 0.4 th/ul 742-7 LOINC #EOS 0.2 th/ul 711-2 LOINC #BASO 0.0 th/ul 704-7 LOINC #IG 0.0 th/uL 20123-6 LOINC NRBC 0 /100 WBC L=0 H=0 MANUAL DIFF NOT INDICATED 20159-3 [facility] LIPID PANEL - Collect Date/T zacarias: 04/24/2021 10:15 [facility] AL ID: [id number] [address] [place] [address], [id number] LOINC: 07422-4 Test Value Unit Reference Range Code Code System Flag TRIGLYCERIDE 149 mg/dl L=0 H=150 2571-8 LOINC CHOLESTEROL 176 mg/dl L=0 H=199 2093-3 LOINC HDL CHOLESTEROL 40.3 mg/dl L=40.0 G=63844 2085-9 LOINC LDL CHOLESTEROL 106 mg/dl L=66 H=160 16466-6 LOINC VLDL 30 L=6 H=40 18827-1 LOINC CHOL/HDL RATIO 4.4 mg/dl L=0.0 H=5.0 9830-1 [facility] COMPREHENSIVE METABOLIC PROF ILE - Collect Date/Time: 04/24/2021 10:15 [facility] ID: [id number] [address] [place] [address], [id number] LOINC: 69403-1 Test Value Unit Reference Range Code Code System Flag SODIUM 140 mmol/L L=136 H=145 2951-2 LOINC POTASSIUM 5.1 mmol/L L=3.5 H=5.0 2823-3 LOINC H CHLORIDE 105 mmol/L L=98 H=107 2075-0 LOINC CO2 23.6 mmol/L L=22.0 H=29.0 1962-0 LOINC BUN 15 mg/dl L=6 H=21 3094-0 LOINC CREATININE 1.1 mg/dl L=0.7 H=1.2 2160-0 LOINC GLUCOSE 116 mg/dl L=74 H=109 2345-7 LOINC H CALCIUM 9.5 mg/dl L=8.6 H=10.5 45517-1 LOINC SGOT(AST) 39 U/L L=5 H=40 1920-8 LOINC SGPT(ALT) 29 U/L L=5 H=41 1744-2 LOINC ALKALINE PHOS 83 U/L L=40 H=129 6768-6 LOINC BILIRUBIN T 1.19 mg/dl L=0.00 H=1.20 1975-2 LOINC TOTAL PROTEIN 7.3 g/dL L=6.1 H=8.1 2885-2 LOINC ALBUMIN 4.5 g/dl L=3.5 H=5.2 1751-7 LOINC GLOBULIN 2.8 g/dl L=2.3 H=3.5 69868-4 LOINC A/G RATIO 1.6 % L=1.0 H=1.8 1759-0 LOINC AGE 75 yrs 39[address]-7 LOINC GFR-AA 84 L=60 H=999 77736-0 LOINC GFR-NON AA 70 L=60 H=999 75052-6 LOINC Social History Type Status Start Date [...] Date Code Code Sys tem Mixed hyperlipidemia 04/24/2021 [id number] SNOMED- CT Personal Care Team Section Performer Name Performer Role Active Date Inactive Da te
--- OUTSIDE RECORDS SUMMARY | 2023-08-30 10:56 | XMS_ITS ---
Author Name Unknown Address [address], [place] [id number] Phone Organization Unknown Address [address], [place] [id number] Phone Care Team Providers Care Orthotist Name Role Phone SHILOH Leung Attending Unavailable Immunization Immunization Date Status Additional Notes Code Code System Influenza, high dose seasonal 12/29/2012 Completed 135 CVX Results CBC w/AUTOMATED DIFF - Colle ct Date/Time: 07/29/2021 10:33 [facility] [place] ID: [id number] [address] [place] [address], [phone] LOINC: 02261-2 Test Value Unit Reference Range Code Code System Flag WBC 9.4 th/ul L=4.0 H=10.5 6690-2 LOINC RBC 4.74 mil/ul L=4.50 H=6.00 789-8 LOINC HGB 14.7 g/dl L=13.5 H=18.0 718-7 LOINC HCT 44.8 % L=41.0 H=52.0 4544-3 LOINC MCV 95 fL L=78 H=100 787-2 LOINC MCH 31.0 pg L=27.0 H=32.0 785-6 LOINC MCHC 32.8 g/dl L=32.0 H=36.0 786-4 LOINC RDW 13.4 % L=11.0 H=14.0 788-0 LOINC PLATELET 306 th/ul L=150 H=450 777-3 LOINC %NEUT 56.2 % L=50.0 H=70.0 770-8 LOINC %LYMPH 35.7 % L=20.0 H=40.0 736-9 LOINC %MONO 5.5 % L=0.0 H=10.0 5905-5 LOINC %EOS 2.0 % L=0.0 H=3.0 713-8 LOINC %BASO 0.3 % L=0.0 H=2.0 706-2 LOINC %IG 0.3 % L=0.0 H=2.0 #NEUT 5.3 th/ul 751-8 LOINC #LYMPHS 3.4 th/ul 731-0 LOINC #MONOS 0.5 th/ul 742-7 LOINC #EOS 0.2 th/ul 711-2 LOINC #BASO 0.0 th/ul 704-7 LOINC #IG 0.0 th/uL 03139-6 LOINC NRBC 0 /100 WBC L=0 H=0 MANUAL DIFF NOT INDICATED 95072-4 [facility] LIPID PANEL - Collect Date/T zacarias: 07/29/2021 10:33 [facility] AL ID: [id number] [address] [place] [address], [phone] LOINC: 43690-2 Test Value Unit Reference Range Code Code System Flag TRIGLYCERIDE 177 mg/dl L=0 H=150 2571-8 LOINC H CHOLESTEROL 164 mg/dl L=0 H=199 2093-3 LOINC HDL CHOLESTEROL 36.7 mg/dl L=40.0 F=28180 2085-9 LOINC L LDL CHOLESTEROL 92 mg/dl L=66 H=160 45916-9 LOINC VLDL 35 L=6 H=40 27968-9 LOINC CHOL/HDL RATIO 4.5 mg/dl L=0.0 H=5.0 9830-1 [facility] COMPREHENSIVE METABOLIC PROF ILE - Collect Date/Time: 07/29/2021 10:33 [facility] AL ID: [id number] [address] [place] [address], [phone] LOINC: 59456-6 Test Value Unit Reference Range Code Code System Flag SODIUM 139 mmol/L L=136 H=145 2951-2 LOINC POTASSIUM 5.3 mmol/L L=3.5 H=5.0 2823-3 LOINC H CHLORIDE 105 mmol/L L=98 H=107 2075-0 LOINC CO2 23.7 mmol/L L=22.0 H=29.0 1962-0 LOINC BUN 19 mg/dl L=6 H=21 3094-0 LOINC CREATININE 1.2 mg/dl L=0.7 H=1.2 2160-0 LOINC GLUCOSE 93 mg/dl L=74 H=109 2345-7 LOINC CALCIUM 9.3 mg/dl L=8.6 H=10.5 69560-4 LOINC SGOT(AST) 41 U/L L=5 H=40 1920-8 LOINC H SGPT(ALT) 29 U/L L=5 H=41 1744-2 LOINC ALKALINE PHOS 96 U/L L=40 H=129 6768-6 LOINC BILIRUBIN T 0.68 mg/dl L=0.00 H=1.20 1975-2 LOINC TOTAL PROTEIN 7.2 g/dL L=6.1 H=8.1 2885-2 LOINC ALBUMIN 4.2 g/dl L=3.5 H=5.2 1751-7 LOINC GLOBULIN 3.0 g/dl L=2.3 H=3.5 07882-7 LOINC A/G RATIO 1.4 % L=1.0 H=1.8 1759-0 LOINC AGE 75 yrs 14518-1 LOINC GFR-AA 76 L=60 H=999 19357-6 LOINC GFR-NON AA 63 L=60 H=999 07697-8 LOINC Social History Type Status Start Date [...] Diagnosis Start Date Code Code Sys tem Neuropathy due to type 2 diabetes mellitus 07/29/2021 [id number] SNOMED-CT Personal Care Team Section Performer Name Performer Role Active Date Inactive Da te
--- OUTSIDE RECORDS SUMMARY | 2023-08-30 10:56 | XMS_ITS ---
Author Name Unknown Address [address] [place], [place] [id number] Phone Organization Unknown Address [address] [place], [place] [id number] Phone Care Team Providers Care Bpm Analyst Name Role Phone SHILOH Leung Attending Unavailable Immunization Immunization Date Status Additional Notes Code Code System Influenza, high dose seasonal 12/29/2012 Completed 135 CVX Results COMPREHENSIVE METABOLIC PROF ILE - Collect Date/Time: 11/01/2022 07:45 [facility] ID: [id number] [address] [place], [place], [phone] LOINC: 51081-5 Test Value Unit Reference Range Code Code System Flag SODIUM 139 mmol/L L=136 H=145 2951-2 LOINC POTASSIUM 5.3 mmol/L L=3.5 H=5.0 2823-3 LOINC H CHLORIDE 106 mmol/L L=98 H=107 2075-0 LOINC CO2 23.0 mmol/L L=22.0 H=29.0 1962-0 LOINC BUN 19 mg/dl L=6 H=21 3094-0 LOINC CREATININE 1.3 mg/dl L=0.7 H=1.2 2160-0 LOINC H GLUCOSE 94 mg/dl L=74 H=109 2345-7 LOINC CALCIUM 9.9 mg/dl L=8.6 H=10.5 39360-8 LOINC SGOT(AST) 26 U/L L=5 H=40 1920-8 LOINC SGPT(ALT) 11 U/L L=5 H=41 1744-2 LOINC ALKALINE PHOS 106 U/L L=40 H=129 6768-6 LOINC BILIRUBIN T 0.68 mg/dl L=0.00 H=1.20 1975-2 LOINC TOTAL PROTEIN 6.8 g/dL L=6.1 H=8.1 2885-2 LOINC ALBUMIN 4.6 g/dl L=3.5 H=5.2 1751-7 LOINC GLOBULIN 2.2 g/dl L=2.3 H=3.5 83366-1 LOINC L A/G RATIO 2.1 % L=1.0 H=1.8 1759-0 LOINC H AGE 77 yrs 16247-2 LOINC GFR-AA 69 L=60 H=999 66653-3 LOINC GFR-NON AA 57 L=60 H=999 31107-4 LOINC L LIPID PANEL - Collect Date/T zacarias: 11/01/2022 07:45 [facility] AL ID: [id number] [address] [place] [address], [id number] LOINC: 45766-0 Test Value Unit Reference Range Code Code System Flag TRIGLYCERIDE 147 mg/dl L=0 H=150 2571-8 LOINC CHOLESTEROL 149 mg/dl L=0 H=199 2093-3 LOINC HDL CHOLESTEROL 38.9 mg/dl L=40.0 R=12306 2085-9 LOINC L LDL CHOLESTEROL 81 mg/dl L=66 H=160 58621-0 LOINC VLDL 29 L=6 H=40 42960-8 LOINC CHOL/HDL RATIO 3.8 mg/dl L=0.0 H=5.0 9830-1 LOINC HGBA1C (GLYCOHEMOGLOBIN) - C ollect Date/Time: 11/01/2022 07:45 [facility] AL ID: [id number] [address] [place] [address], [phone] LOINC: 4548-4 Test Value Unit Reference Range Code Code System Flag HGBA1c(GLYCO) 6.2 % L=4.6 H=6.0 4548-4 LOINC H MEAN BLD GLUC 131 mg/dl Social History Type Status Start Date End [...] Neuropathy due to type 2 diabetes mellitus 11/01/2022 [id number] SNOMED-CT Personal Care Team Section Performer Name Performer Role Active Date Inactive Da te
[2023-08-30] MEDS: zoledronic acid (Zometa) 4 MG/100 ML PIGGYBACK 400 MG IV (11:41)
[2023-08-30 12:11] VITALS: BP 128/68; PULSE 69; RESP 16; TEMP 36.4; O2SAT 98
== END 2023-09-21 23:59 | disposition home or self-care (01) ==
LOC: ONCMED 10:53
PROVIDERS: PCP Family Medicine; Visit Provider Family Medicine
DX: C79.51 Secondary malignant neoplasm of bone (principal)
CPT/HCPCS: 96365; J3489

== ENCOUNTER → 2023-09-21 09:31 | Outpatient (BNVA) | payer OTHER, MEDICAID, SELFPAY | PROVIDERS: PCP Family Medicine; Visit Provider Family Medicine | DX: E03.9 Hypothyroidism, unspecified (principal); E87.5 Hyperkalemia; E11.9 Type 2 diabetes mellitus without complications | CPT/HCPCS: 80053; 83036; 84439; 84443; 85025 ==

== ENCOUNTER 2023-09-27 15:34 | Oncology outpatient (recurring) (ONCR) | payer OTHER, MEDICAID, SELFPAY ==
[2023-09-27 15:45] VITALS: BP 127/64; PULSE 87; RESP 16; TEMP 36.2; O2SAT 98
[2023-09-27] MEDS: zoledronic acid (Zometa) 4 MG/100 ML PIGGYBACK 400 MG IV (15:50)
== END 2023-10-22 23:59 | disposition home or self-care (01) ==
PROVIDERS: PCP Family Medicine; Visit Provider Family Medicine
DX: C79.51 Secondary malignant neoplasm of bone (principal); Z79.83 Long term (current) use of bisphosphonates; Z79.899 Other long term (current) drug therapy; C61 Malignant neoplasm of prostate
CPT/HCPCS: J3489

== ENCOUNTER 2023-10-25 11:00 | Oncology outpatient (recurring) (ONCR) | payer OTHER, MEDICAID, SELFPAY ==
[2023-10-25 11:35] LABS: Basophils % 0.1 %; Eosinophils # 0.1 10^3/uL (0.0-0.8); Eosinophils % 1.5 %; Hematocrit 30.7 % (37-53); Lymphocytes # 2.2 10^3/uL (0.8-4.8); Lymphocytes % 30.2 %; Mean Corpuscular HGB Conc 30.6 g/dL (30-55); Mean Corpuscular Hemoglobin 30.3 pg (27-33); Mean Platelet Volume 9.6 fL (7.4-10.4); Monocytes # 0.4 10^3/uL (0.2-0.9); Monocytes % 5.5 %; Neutrophils # 4.43 10^3/uL (1.8-7.7); Neutrophils % 60.4 %; Nucleated Red Blood Cells % 0 %; Platelet Count 287 10^3/cmm (157-399); Red Cell Distribution Width 14.9 % (12.1-15.1); White Blood Count 7.33 10^3/uL (3.29-11.43)
[2023-10-25 12:06] LABS: Alanine Aminotransferase 6 U/L (0-41); Albumin Level 3.7 g/dL (3.5-5.2); Alkaline Phosphatase 148 U/L (40-130); Anion Gap 18.9 (5-19); Aspartate Amino Transferase 17 U/L (0-40); Blood Urea Nitrogen 23 mg/dL (8-23); Carbon Dioxide 21 mmol/L (22-29); Chloride 104 mmol/L (98-107); Globulin 3.1 g/dL (1.3-4.6); Glucose 154 mg/dL (65-115); Osmolality Calculated 295 mOsm/kg (285-295); Potassium 4.9 mmol/L (3.5-5.1); Sodium 139 mmol/L (136-145); Testosterone Total 10.5 ng/dL (193-740); Total Bilirubin 0.2 mg/dL (0.15-1.2); Total Protein 6.8 g/dL (6.6-8.7)
[2023-10-25] MEDS: zoledronic acid (Zometa) 4 MG/100 ML PIGGYBACK 400 MG IV (13:07)
[2023-10-25] MEDS: leuprolide 22.5 mg Kit IM (13:16)
[2023-10-25 13:38] VITALS: BP 134/69; PULSE 86; RESP 16; TEMP 36.6; O2SAT 98
== END 2023-11-21 23:59 | disposition home or self-care (01) ==
PROVIDERS: Nurse Practitioner Family; PCP Family Medicine; Visit Provider Family Medicine
DX: C79.51 Secondary malignant neoplasm of bone (principal); C61 Malignant neoplasm of prostate; Z79.83 Long term (current) use of bisphosphonates; Z79.899 Other long term (current) drug therapy; Z51.12 Encounter for antineoplastic immunotherapy
CPT/HCPCS: 80053; 84153; 84403; 85025; 96365; 96402; 99214; J3489; J9217

== ENCOUNTER 2023-12-22 10:23 | Oncology outpatient (recurring) (ONCR) | payer OTHER, MEDICAID, SELFPAY ==
[2023-12-22 10:55] LABS: Basophils % 0.5 %; Eosinophils # 0.3 10^3/uL (0.0-0.8); Eosinophils % 3.2 %; Hematocrit 29.6 % (37-53); Lymphocytes # 2.4 10^3/uL (0.8-4.8); Lymphocytes % 29.2 %; Mean Corpuscular HGB Conc 30.7 g/dL (30-55); Mean Corpuscular Hemoglobin 30.3 pg (27-33); Mean Corpuscular Volume 98.7 fl (82-101); Mean Platelet Volume 9.2 fL (7.4-10.4); Monocytes # 0.6 10^3/uL (0.2-0.9); Monocytes % 7.5 %; Neutrophils # 4.73 10^3/uL (1.8-7.7); Neutrophils % 58.1 %; Nucleated Red Blood Cells % 0 %; Platelet Count 386 10^3/cmm (157-399); Red Cell Distribution Width 15.9 % (12.1-15.1); White Blood Count 8.14 10^3/uL (3.29-11.43)
[2023-12-22 11:22] LABS: Alanine Aminotransferase < 5 U/L (0-41); Alkaline Phosphatase 197 U/L (40-130); Anion Gap 17.6 (5-19); Aspartate Amino Transferase 14 U/L (0-40); Blood Urea Nitrogen 21 mg/dL (8-23); Calcium 9.2 mg/dL (8.5-10.5); Carbon Dioxide 25 mmol/L (22-29); Chloride 98 mmol/L (98-107); Globulin 3.2 g/dL (1.3-4.6); Glucose 94 mg/dL (65-115); Osmolality Calculated 285 mOsm/kg (285-295); Potassium 4.6 mmol/L (3.5-5.1); Sodium 136 mmol/L (136-145); Total Bilirubin 0.3 mg/dL (0.15-1.2); Total Protein 7.2 g/dL (6.6-8.7)
[2023-12-22] MEDS: zoledronic acid (Zometa) 4 MG/100 ML PIGGYBACK 400 MG IV (12:02)
== END 2023-12-22 23:59 | disposition home or self-care (01) ==
LOC: ONCMED 10:24
PROVIDERS: Nurse Practitioner Family; PCP Family Medicine; Visit Provider Family Medicine
DX: C61 Malignant neoplasm of prostate (principal); C79.51 Secondary malignant neoplasm of bone; Z79.83 Long term (current) use of bisphosphonates; Z79.899 Other long term (current) drug therapy; D64.9 Anemia, unspecified
CPT/HCPCS: 80053; 84153; 85025; 96365; 99214; J3489

== ENCOUNTER 2023-12-29 08:00 | Outpatient (CLI) | payer OTHER, MEDICAID, SELFPAY ==
--- NOTE | 2023-12-29 08:00 | NM_ITS ---
WS: [id number] NUCLEAR MEDICINE BONE SCAN Radiopharmaceutical: 21.2 Tc-99m MDP mCi IV Injection site: Antecubital Postinjection imaging delay: 1 hour CLINICAL INFORMATION: new bone pain at neck and low back COMPARISON: None. FINDINGS: Bone lesions: Diffuse patch bony uptake throughout the axial and appendicular skeleton compatible wit h diffuse metastatic disease. This also involves the calvarium. Patchy uptake in the ribs bilaterally manubrium and sternum and proximal appendicular skeleton. Decreased renal and background soft tissue activity. Findings compatible with SuperScan. Soft tissue contours: Poorly visualized Kidneys: Poorly visualized Other findings: None. NM/NM bone scan whole body* [id number] IMPRESSION: Diffuse patchy radiotracer uptake throughout the axial and appendicular skeleto n as well as the calvarium compatible with diffuse osseous metastatic disease SuperScan
== END 2023-12-29 08:01 | disposition home or self-care (01) ==
PROVIDERS: PCP Family Medicine; Visit Provider Nurse Practitioner Family
DX: C79.51 Secondary malignant neoplasm of bone (principal); C61 Malignant neoplasm of prostate
CPT/HCPCS: 78306; A9561

== ENCOUNTER → 2024-01-12 10:55 | Outpatient (BNVA) | payer MEDICARE, SELFPAY | PROVIDERS: PCP Family Medicine; Visit Provider Family Medicine | DX: E03.9 Hypothyroidism, unspecified; E11.9 Type 2 diabetes mellitus without complications | CPT/HCPCS: 80053; 83036; 84443 ==

== ENCOUNTER 2024-01-17 09:31 | Oncology outpatient (recurring) (ONCR) | payer MEDICARE, MEDICAID, SELFPAY ==
[2024-01-17 09:58] LABS: Basophils % 0.3 %; Eosinophils # 0.3 10^3/uL (0.0-0.8); Eosinophils % 3.4 %; Hematocrit 27.8 % (37-53); Lymphocytes # 2.3 10^3/uL (0.8-4.8); Mean Corpuscular HGB Conc 30.2 g/dL (30-55); Mean Corpuscular Volume 95.9 fl (82-101); Mean Platelet Volume 9.4 fL (7.4-10.4); Monocytes # 0.5 10^3/uL (0.2-0.9); Monocytes % 5.6 %; Neutrophils # 6.27 10^3/uL (1.8-7.7); Neutrophils % 65.1 %; Nucleated Red Blood Cells % 0 %; Platelet Count 412 10^3/cmm (157-399); Red Cell Distribution Width 16.6 % (12.1-15.1); White Blood Count 9.63 10^3/uL (3.29-11.43)
[2024-01-17 10:24] LABS: Alanine Aminotransferase 6 U/L (0-41); Alkaline Phosphatase 194 U/L (40-130); Anion Gap 16.7 (5-19); Aspartate Amino Transferase 17 U/L (0-40); Blood Urea Nitrogen 19 mg/dL (8-23); Calcium 9.5 mg/dL (8.5-10.5); Carbon Dioxide 25 mmol/L (22-29); Chloride 98 mmol/L (98-107); Creatinine Clr Calc Pharmacy 73.4182; Globulin 3.4 g/dL (1.3-4.6); Glucose 135 mg/dL (65-115); Osmolality Calculated 284 mOsm/kg (285-295); Potassium 4.7 mmol/L (3.5-5.1); Sodium 135 mmol/L (136-145); Total Bilirubin 0.3 mg/dL (0.15-1.2); Total Protein 7.4 g/dL (6.6-8.7)
[2024-01-17 12:37] VITALS: BP 145/61; PULSE 109; RESP 16; TEMP 36.4; O2SAT 96
[2024-01-17] MEDS: zoledronic acid (Zometa) 4 MG/100 ML PIGGYBACK 400 MG IV (12:46)
[2024-01-17] MEDS: leuprolide 22.5 mg Kit IM (13:16)
== END 2024-01-21 23:59 | disposition home or self-care (01) ==
PROVIDERS: Nurse Practitioner Family; PCP Family Medicine; Visit Provider Family Medicine
DX: C61 Malignant neoplasm of prostate; C79.51 Secondary malignant neoplasm of bone; Z79.83 Long term (current) use of bisphosphonates; Z79.899 Other long term (current) drug therapy; Z51.11 Encounter for antineoplastic chemotherapy; Z79.818 Long term (current) use of other agents affecting estrogen receptors and estrogen levels; M54.10 Radiculopathy, site unspecified; D64.9 Anemia, unspecified
CPT/HCPCS: 80053; 84153; 84403; 85025; 96402; 99214; J3489; J9217

== ENCOUNTER 2024-01-28 11:18 | Emergency (ER) | payer MEDICARE, MEDICAID, SELFPAY ==
[2024-01-28 11:20] VITALS: BP 118/57; PULSE 93; RESP 14; TEMP 36.7; O2SAT 95
--- NOTE | 2024-01-28 11:23 | XRR_ITS ---
PROCEDURE INFORMATION: Exam: XR Chest Exam date and time: 01/28/2024 11:44 AM Age: 78 years old Clinical indication: Shortness of breath; Patient HX: SOB; Generalized pain; Prostate CA with bone mets TECHNIQUE: Imaging protocol: Radiologic exam of the chest. Views: 1 view. COMPARISON: NM bone scan whole body* [id number] 12/29/2023 8:00 AM FINDINGS: Tubes, catheters and devices: Midthoracic neurostimulator. Lungs: Unremarkable. No consolidation. Pleural spaces: Unremarkable. No pleural effusion. No pneumothorax. Heart/Mediastinum: Unremarkable. No cardiomegaly. Bones/joints: Extensive sclerotic bony metastases particularly visible in the shoulders. XR/XR chest 1V portable [id number] IMPRESSION: No acute cardi. opulmonary disease
--- NOTE | 2024-01-28 11:29 | ED_ITS ---
HPI - General Adult 2 General: Chief complaint: General Medical Stated complaint: PAIN ALL OVER Time Seen by Provider: 01/28/24 11:19 Source: patient and EMS Mode of arrival: EMS History of Present Illness: 78-year-old male history of cancer with metastases to the bone with chronic pain states that he has been having increasing pain specially to the back and side and extremities. Patient here is slow to respond he did receive fentanyl and route. No fevers no bowel or bladder incontinence. Per states he has been having some confusion for quite some time as well Associated symptoms: Deny chest pain, dyspnea, headache(s), nausea, rash or vomiting Related Data Home Medications Medication Instructions Recorded Confirmed cyclobenzaprine 10 mg tablet 10 mg PO TID 02/29/20 01/28/24 hydrocodone 7.5 mg-acetaminophen See Rx Instructions .Route 02/29/20 01/28/24 325 mg tablet .COMPLEX PRN Pain metoclopramide HCl 10 mg tablet 10 mg PO Q6H PRN Nausea 04/26/23 01/28/24 dexlansoprazole 60 mg 60 mg PO DAILY 12/22/23 01/28/24 capsule,biphase delayed release losartan 50 mg tablet 50 mg PO DAILY 01/12/24 01/28/24 Previous Rx's Medication Instructions Recorded enzalutamide 40 mg tablet (Xtandi) 160 mg (4 x 40 mg) PO DAILY 30 05/04/23 days #120 tabs Rollaid with seat #1 ea 09/22/23 gabapentin 100 mg capsule 100 mg PO TID #30 caps 01/12/24 levothyroxine 75 mcg tablet 75 mcg PO DAILY #90 tabs 01/13/24 quetiapine 25 mg tablet (Seroquel) 25 mg PO .qhs #30 tabs 01/18/24 Allergies Allergy/AdvReac Type Severity Reaction Status Date / Time codeine Allergy Severe makes him Verified 01/18/24 11:30 sick lorazepam Allergy Severe makes him Verified 01/18/24 11:30 have hallucinations and delusions Review of Systems 2 Const: Denies: fever(s), chills, body aches or change in appetite ENMT: Denies: throat pain or dental pain Card: Denies: chest pain Resp: Denies: dyspnea GI: Denies: abdominal pain, nausea, vomiting or diarrhea Musc: Reports: back pain and extremity pain; Denies: neck pain Skin/Breast: Denies: rash Neuro: Denies: headache(s) PFSH ED 2 PFSH: Medical History Insomnia Gait instability Degenerative joint disease of spine Hypothyroidism Hypertension Chronic back pain GERD (gastroesophageal reflux disease) Hyperlipidemia Anxiety and depression Type 2 diabetes mellitus Malignant neoplasm of prostate Psychiatric care Surgical History H/O bilateral cataract extraction History of inguinal hernia repair History of radical prostatectomy (2010) S/P insertion of spinal cord stimulator History of back surgery Family History Father Prostate cancer CAD (coronary artery disease) Mother Alzheimer's dementia Heart attack Brother Prostate cancer Brother Heart disease Social History Smoking and tobacco/nicotine status: never used tobacco/nicotine Substance/Drug Use: current Substance/Drug use frequency: Special occassions/opportunity only Current gender identity: Male Physical Exam 2 Const: COMMON NORMALS: patient oriented x3 HENMT: COMMON NORMALS: normocephalic and atraumatic HEAD & SCALP: n ormocephalic and atraumatic Eye: COMMON NORMALS: Equal, round and reactive pupils present and EOMs intact bilaterally PUPIL: Yes Equal, round and reactive pupils present Neck/C-Spine: COMMON NORMALS: full ROM and supple Chest: COMMONS NORMALS: normal inspection of the chest and normal palpation of entire chest wall Resp: COMMON NORMALS: normal respiratory effort, No retractions, No use of accessory muscles and clear to auscultation bilaterally AUSCULTATION: clear to auscultation bilaterally Cardio: COMMON NORMALS: regular rate, regular rhythm and No murmurs present (Cardio) RATE: regular rate RHYTHM: regular rhythm GI: COMMON NORMALS: Normal to inspection, nondistended, normoactive bowel sounds present, Soft to palpation, non-tender and no masses PALPATION: Yes Soft to palpation Extremity: COMMON NORMALS: normal to inspection and full ROM Neuro: COMMON NORMALS: patient oriented x3, moves all extremities and no focal motor deficits Psych: COMMON NORMALS: mental status grossly normal, Normal thought process present and cooperative THOUGHT PROCESS: Normal thought process present Skin: COMMON NORMALS: no rashes or lesions noted and no wounds GENERAL SKIN EXAM: no rashes or lesions noted Course 2 Vital Signs: Vital signs: Vital Signs Temperature 98.1 F 01/28/24 11:20 Pulse Rate 86 01/28/24 12:26 Respiratory Rate 16 01/28/24 12:26 Blood Pressure 123/68 01/28/24 12:26 Pulse Oximetry 95 01/28/24 12:26 Oxygen Delivery Me thod Room Air 01/28/24 12:26 MDM - General Adult Medical Decision Making Patient presents with chronic pain from cancer his pains improved here blood work imaging stable ED stable for discharge follow-up with his oncologist return if worsening he understands agrees to plan Medical Records I reviewed the patient's medical records. Lab Data I reviewed the patient's lab results. 01/28/24 11:00 01/28/24 11:00 Radiology Impressions Chest X-Ray 01/28/24 11:23 IMPRESSION: No acute cardi. opulmonary disease Head CT 01/28/24 12:12 IMPRESSION: 1. No acute intracranial abnormality. 2. Likely osseous metastases. Laboratory Results WBC 8.54 10^3/uL (3.29-11.43) 01/28/24 11:00 RBC 2.64 10^6/uL (3.85-5.65) L 01/28/24 11:00 Hgb 7.70 g/dL (11.27-16.99) L 01/28/24 11:00 Hct 25.8 % (37-53) L 01/28/24 11:00 MCV 97.7 fl (82-101) 01/28/24 11:00 MCH 29.2 pg (27-33) 01/28/24 11:00 MCHC 29.8 g/dL (30-55) L 01/28/24 11:00 RDW 16.3 % (12.1-15.1) H 01/28/24 11:00 Plt Count 394 10^3/cmm (157-399) 01/28/24 11:00 MPV 9.4 fL (7.4-10.4) 01/28/24 11:00 Neut % (Auto) 67.9 % 01/28/24 11:00 Lymph % (Auto) 22.1 % 01/28/24 11:00 [place] % (Auto) 6.3 % 01/28/24 11:00 Eos % (Auto) 2.2 % 01/28/24 11:00 Baso % (Auto) 0.4 % 01/28/24 11:00 Neut # (Auto) 5.80 10^3/uL (1.8-7.7) 01/28/24 11:00 Lymph # (Auto) 1.9 10^3/uL (0.8-4.8) 01/28/24 11:00 [place] # (Auto) 0.5 10^3/uL (0.2-0.9) 01/28/24 11:00 Eos # (Auto) 0.2 10^3/uL (0.0-0.8) 01/28/24 11:00 Baso # (Auto) 0.0 10^3/uL (0.0-0.1) 01/28/24 11:00 Nucleated RBC % (auto) 0 % 01/28/24 11:00 Nucleated RBCs # 0.0 /100WBC 01/28/24 11:00 Sodium 132 mmol/L (136-145) L 01/28/24 11:00 Potassium 4.8 mmol/L (3.5-5.1) 01/28/24 11:00 Chloride 100 mmol/L (98-107) 01/28/24 11:00 Carbon Dioxide 21 mmol/L (22-29) L 01/28/24 11:00 Anion Gap 15.8 (5-19) 01/28/24 11:00 BUN 27 mg/dL (8-23) H 01/28/24 11:00 Creatinine 1.1 mg/dL (0.7-1.2) 01/28/24 11:00 GFR Calculation Not Reportable 01/28/24 11:00 Glucose 147 mg/dL (65-115) H 01/28/24 11:00 Calculated Osmolality 282 mOsm/kg (285-295) L 01/28/24 11:00 Calcium 9.7 mg/dL (8.5-10.5) 01/28/24 11:00 Total Bilirubin 0.5 mg/dL (0.15-1.2) 01/28/24 11:00 AST 23 U/L (0-40) 01/28/24 11:00 ALT 6 U/L (0-41) 01/28/24 11:00 Alkaline Phosphatase 211 U/L (40-130) H 01/28/24 11:00 Total Protein 6.7 g/dL (6.6-8.7) 01/28/24 11:00 Albumin 3.7 g/dL (3.5-5.2) 01/28/24 11:00 Globulin 3.0 g/dL (1.3-4.6) 01/28/24 11:00 TSH 2.03 uIU/mL (0.27-4.20) 01/28/24 11:00 All radiology interpretation(s) finalized by discharge Discharge Plan Discharge Patient Disposition: Home Clinical Impression: Secondary malignant neoplasm of bone, Chronic back pain Condition: Stable Prescriptions: No Action hydrocodone-acetaminophen 7.5-325 mg tablet See Rx Instructions .ROUTE .COMPLEX PRN (Reason: Pain) Rx Instructions: take 1 - 2 tablets by mouth every 4-6hrs as needed for pain #224 tabs cyclobenzaprine 10 mg tablet 10 mg PO TID (DME) Rollaid with seat See Rx Instructions .Route .MEDSUPPLY Qty: 1 0RF Rx Instructions: As directed dexlansoprazole 60 mg capsule,biphase delayed releas 60 mg PO DAILY losartan 50 mg tablet 50 mg PO DAILY gabapentin 100 mg capsule 100 mg PO TID Qty: 30 0RF metoclopramide HCl 10 mg tablet 10 mg PO Q6H PRN (Reason: Nausea) quetiapine [Seroquel] 25 mg tablet 25 mg PO .qhs Qty: 30 0RF Rx Instructions: 1hr before bedtime Xtandi 40 mg tablet 160 mg PO DAILY 30 Days Qty: 120 11RF levothyroxine 75 mcg tablet 75 mcg PO DAILY Qty: 90 1RF Discharge Orders: Discharge ED (Routine); Ordered 01/28/24 Ordered By: Estiven Najera Referrals: Hemanth Oliveira MD [Primary Care Provider] - 4-7 days Discharge Diet: Advance as tolerated Discharge Activity: Resume usual activity Patient Instructions: Cancer Pain (ED) Coding Level of Care Code ED Facility Maintenance Mechanic for Erika Cardozo
[2024-01-28 11:35] LABS: Basophils % 0.4 %; Eosinophils # 0.2 10^3/uL (0.0-0.8); Eosinophils % 2.2 %; Hematocrit 25.8 % (37-53); Lymphocytes # 1.9 10^3/uL (0.8-4.8); Lymphocytes % 22.1 %; Mean Corpuscular HGB Conc 29.8 g/dL (30-55); Mean Corpuscular Hemoglobin 29.2 pg (27-33); Mean Corpuscular Volume 97.7 fl (82-101); Mean Platelet Volume 9.4 fL (7.4-10.4); Monocytes # 0.5 10^3/uL (0.2-0.9); Monocytes % 6.3 %; Neutrophils % 67.9 %; Nucleated Red Blood Cells % 0 %; Platelet Count 394 10^3/cmm (157-399); Red Blood Count 2.64 10^6/uL (3.85-5.65); Red Cell Distribution Width 16.3 % (12.1-15.1); White Blood Count 8.54 10^3/uL (3.29-11.43)
--- NOTE | 2024-01-28 11:38 | PC.PHAR ---
patient is prescribed up to 10 tabs of hydrocodone/acet 7.5 325 1-2 tabs po q4-6hrs
[2024-01-28 12:04] LABS: Alanine Aminotransferase 6 U/L (0-41); Albumin Level 3.7 g/dL (3.5-5.2); Alkaline Phosphatase 211 U/L (40-130); Anion Gap 15.8 (5-19); Aspartate Amino Transferase 23 U/L (0-40); Blood Urea Nitrogen 27 mg/dL (8-23); Calcium 9.7 mg/dL (8.5-10.5); Carbon Dioxide 21 mmol/L (22-29); Chloride 100 mmol/L (98-107); Creatinine Clr Calc Pharmacy 51.7532; Glucose 147 mg/dL (65-115); Osmolality Calculated 282 mOsm/kg (285-295); Potassium 4.8 mmol/L (3.5-5.1); Sodium 132 mmol/L (136-145); Thyroid Stimulating Hormone 2.03 uIU/mL (0.27-4.20); Total Bilirubin 0.5 mg/dL (0.15-1.2); Total Protein 6.7 g/dL (6.6-8.7)
--- NOTE | 2024-01-28 12:12 | CTR_ITS ---
PROCEDURE INFORMATION: Exam: CT Head Without Contrast Exam date and time: 01/28/2024 12:50 PM Age: 78 years old Clinical indication: Altered mental status/memory loss; Additional info: Confusion TECHNIQUE: Imaging protocol: Computed tomography of the head without contrast. Radiation optimization: All CT scans at this facility use at least one of these dose optimization techniques: automated exposure control; mA and/or kV adjustment per patient size (includes targeted exams where dose is matched to clinical indication); or iterative reconstruction. COMPARISON: NM bone scan whole body* [id number] 12/29/2023 8:00 AM RADIATION DOSE METRICS: Total DLP (mGy-cm): 1149.45 FINDINGS: Brain: Normal. No hemorrhage. Unremarkable white matter. No mass effect. Cerebral ventricles: No ventriculomegaly. Paranasal sinuses: Visualized sinuses are unremarkable. No fluid levels. Mastoid air cells: Visualized mastoid air cells are well aerated. Bones: Small permeative appearing calvarial lesions may represent metastatic disease. Patchy demineralization of the base of the skull and clivus, also suspicious for metastasis. Soft tissues: Unremarkable. CT/CT head wo con* [id number] IMPRESSION: 1. No acute intracranial abnormality. 2. Likely osseous metastases.
[2024-01-28 12:26] VITALS: BP 123/68; PULSE 86; RESP 16; O2SAT 95
[2024-01-28 14:30] VITALS: RESP 16; O2SAT 98
[2024-01-28] MEDS: HYDROmorphone 1 mg/mL INJ 1 mL 0.5 MG IVP (14:30)
[2024-01-28 14:51] VITALS: BP 120/75; PULSE 90; RESP 16; O2SAT 99
== END 2024-01-28 14:37 | disposition home or self-care (01) ==
PROVIDERS: Emergency Provider Emergency Medicine; PCP Family Medicine
DX: C61 Malignant neoplasm of prostate (principal); C79.51 Secondary malignant neoplasm of bone; E11.9 Type 2 diabetes mellitus without complications; I10 Essential (primary) hypertension; E78.5 Hyperlipidemia, unspecified
CPT/HCPCS: 70450; 71045; 80053; 84443; 85025; 96374; 99285; J1171